=== PATIENT | male | born 1985 | race Caucasian/White ===

== ENCOUNTER 2017-05-05 03:10 | Observation (INO) | payer BC ==
[2017-05-05] MEDS ORDERED: Diltiazem IV* 5 MG/ML 5 ML VIAL (for loading dose/IV Push) (25 MG) IV SLOW PU ONE (03:45)
[2017-05-05 04:17] LABS: Hematocrit 45 % (42-52); Hemoglobin 15.1 g/dl (14.0-18.0); Mean Corpuscular HGB Conc 34 g/dl (31-36); Mean Corpuscular Hemoglobin 33 pg (27-31); Mean Corpuscular Volume 98 fL (80-94); Mean Platelet Volume 9 um3 (7.4-10.4); Red Blood Count 4.56 10^6/ul (4.0-5.4); Red Cell Distribution Width 13 % (10.5-15)
[2017-05-05 04:29] LABS: Albumin 4.8 g/dL (3.2-5.2); BUN/Creatinine Ratio 11.4 (8-20); Calcium 9.5 mg/dL (8.6-10.3); EGFR African American 129.9 (>60); Globulin 2.6 g/dL (2-4); Magnesium 2.1 mg/dL (1.9-2.7); Total Bilirubin 0.3 mg/dL (0.2-1.0); Total Protein 7.4 g/dL (6.4-8.9)
[2017-05-05 04:54] LABS: Potassium 4.1 mmol/L (3.5-5.0)
[2017-05-05] MEDS ORDERED: Ondansetron INJ* 2 MG/ML VIAL IV PRN (05:02)
[2017-05-05] MEDS ORDERED: Diltiazem DRIP* 100 MG/100 ML ADDV.BAG IVPB ONE (05:02)
[2017-05-05] MEDS ORDERED: Acetaminophen TAB* 325 MG PO PRN (05:02)
[2017-05-05 05:03] LABS: TSH (Thyroid Stimulating Horm) 1.04 mcIU/mL (0.34-5.60)
[2017-05-05] MEDS ORDERED: Heparin DRIP 25,000 UNITS(*) 25,000 UNITS/500 ML BAG IVPB SCH (05:30)
--- NOTE | 2017-05-05 05:30 | HP ---
H&P (Free Text) History and Physical: PCP: Iliana Sosa MD Date/Time of Evaluation: 05/05/2017 0500 CC: palpitations HPI: Mr Green is a 31YO male HX pAFIB associated with cocaine use. Tonight he was at a Birthday wine tasting when the opportunity to snort cocaine arose. He used around midnight and noticed the sudden onset of palpitations around 0100 prompting him to present. He denies chest pain, SOB, N/V, sweats, or other issues. Bowels and bladder have been normal. PMedHx pAFIB substance use Ambulatory Orders NK [No Home Medications Reported] 05/05/17 Allergies No Known Allergies Allergy (Verified 10/16/16 14:17) PSurgHx appendectomy SocHx: <1/2PPD cigarettes, occasional alcohol, occasional cocaine/marijuana use ; full code status FamHx: Mother: HTN; Father: passed of lung CA in his 60s ROS: as above, otherwise reviewed and all were negative Constitutional: NAD, normally developed, well-nourished white male vitals: Vital Signs Temp 36.9 C 05/05/17 03:41 Pulse 148 05/05/17 03:41 Resp 14 05/05/17 03:41 BP 123/75 05/05/17 03:41 Pulse Ox 98 05/05/17 03:41 Intake & Output 05/04/17 05/04/17 05/05/17 11:59 23:59 11:59 Weight 81.647 kg HEENM: atraumatic; sclera/conjunctiva: non-icteric/clear; hearing: clinically intact; oropharynx: clear, mucosa moist Neck: soft tissue: non-tender; thyroid: normal Pulmonary: clear to auscultation bilaterally, good aeration, no accessory muscle use CV: RR/RR, normal S1S2, no carotid bruit, no jugular venous distention, 2+ B DP/ PT, no edema Abdominal: soft, non-distended, non-tender, no rebound/guarding/rigidity, normoactive bowel sounds, no hepatosplenomegaly or masses, no costovertebral angle tenderness Musculoskeletal: general: grossly intact; gait: stable Integumental: normal appearance and texture of exposed skin Psychiatric orientation: AA&O to PPS affect: calm mood: cooperative eye contact: good content: reliable responses: timely insight: good to fair Testing: Lab Results 05/05/17 05/05/17 05/05/17 Range/Units 03:50 03:50 03:50 WBC 8.0 (3.5-10.8) 10^3/ul RBC 4.56 (4.0-5.4) 10^6/ul Hgb 15.1 (14.0-18.0) g/dl Hct 45 (42-52) % MCV 98 H (80-94) fL MCH 33 H (27-31) pg MCHC 34 (31-36) g/dl RDW 13 (10.5-15) % Plt Count 210 (150-450) 10^3/ul MPV 9 (7.4-10.4) um3 Neut % (Auto) 59.9 (38-83) % Lymph % (Auto) 30.4 (25-47) % [place] % (Auto) 7.9 (1-9) % Eos % (Auto) 0.7 (0-6) % Baso % (Auto) 1.1 (0-2) % Absolute Neuts (auto) 4.8 (1.5-7.7) 10^3/ul Absolute Lymphs (auto) 2.4 (1.0-4.8) 10^3/ul Absolute Monos (auto) 0.6 (0-0.8) 10^3/ul Absolute Eos (auto) 0.1 (0-0.6) 10^3/ul Absolute Basos (auto) 0.1 (0-0.2) 10^3/ul Absolute Nucleated RBC 0.01 10^3/ul Nucleated RBC % 0.1 INR (Anticoag Therapy) 0.84 L (0.89-1.11) Sodium 139 (133-145) mmol/L Potassium 4.1 (3.5-5.0) mmol/L Chloride 109 (101-111) mmol/L Carbon Dioxide 20 L (22-32) mmol/L Anion Gap 10 (2-11) mmol/L BUN 10 (6-24) mg/dL Creatinine 0.88 (0.67-1.17) mg/dL Est GFR ( Amer) 129.9 (>60) Est GFR (Non-Af Amer) 101.0 (>60) BUN/Creatinine Ratio 11.4 (8-20) Glucose 104 H (70-100) mg/dL Lactic Acid (0.5-2.0) mmol/L Calcium 9.5 (8.6-10.3) mg/dL Magnesium 2.1 (1.9-2.7) mg/dL Total Bilirubin 0.30 (0.2-1.0) mg/dL AST 23 (13-39) U/L ALT 23 (7-52) U/L Alkaline Phosphatase 77 (34-104) U/L Troponin I 0.00 (<0.04) ng/mL Total Protein 7.4 (6.4-8.9) g/dL Albumin 4.8 (3.2-5.2) g/dL Globulin 2.6 (2-4) g/dL Albumin/Globulin Ratio 1.8 (1-3) TSH 1.04 (0.34-5.60) mcIU/mL 05/05/17 Range/Units 03:50 WBC (3.5-10.8) 10^3/ul RBC (4.0-5.4) 10^6/ul Hgb (14.0-18.0) g/dl Hct (42-52) % MCV (80-94) fL MCH (27-31) pg MCHC (31-36) g/dl RDW (10.5-15) % Plt Count (150-450) 10^3/ul MPV (7.4-10.4) um3 Neut % (Auto) (38-83) % Lymph % (Auto) (25-47) % [place] % (Auto) (1-9) % Eos % (Auto) (0-6) % Baso % (Auto) (0-2) % Absolute Neuts (auto) (1.5-7.7) 10^3/ul Absolute Lymphs (auto) (1.0-4.8) 10^3/ul Absolute Monos (auto) (0-0.8) 10^3/ul Absolute Eos (auto) (0-0.6) 10^3/ul Absolute Basos (auto) (0-0.2) 10^3/ul Absolute Nucleated RBC 10^3/ul Nucleated RBC % INR (Anticoag Therapy) (0.89-1.11) Sodium (133-145) mmol/L Potassium (3.5-5.0) mmol/L Chloride (101-111) mmol/L Carbon Dioxide (22-32) mmol/L Anion Gap (2-11) mmol/L BUN (6-24) mg/dL Creatinine (0.67-1.17) mg/dL Est GFR ( Amer) (>60) Est GFR (Non-Af Amer) (>60) BUN/Creatinine Ratio (8-20) Glucose (70-100) mg/dL Lactic Acid 1.4 (0.5-2.0) mmol/L Calcium (8.6-10.3) mg/dL Magnesium (1.9-2.7) mg/dL Total Bilirubin (0.2-1.0) mg/dL AST (13-39) U/L ALT (7-52) U/L Alkaline Phosphatase (34-104) U/L Troponin I (<0.04) ng/mL Total Protein (6.4-8.9) g/dL Albumin (3.2-5.2) g/dL Globulin (2-4) g/dL Albumin/Globulin Ratio (1-3) TSH (0.34-5.60) mcIU/mL ECG, personally reviewed: AFIV rate 137, no ischemia Impression: 31M presenting with cocaine induced AFIB/RVR DIAGNOSIS & PLAN Primary AFIB/RVR, cocaine induced : diltiazem GTT for rate control : heparin GTT : cardiology consult in AM, if not spontaneously converted : supplemental oxygen : IVFs : supportive care 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
--- NOTE | 2017-05-05 05:51 | ED ---
Justus Taylor Benjamin, scribed for Mango Medina MD on 05/05/17 at 0353 . Palpitations / Dysrhythmia - HPI Summary HPI Summary: 31yo male c/o sudden onset irregular heartbeat. PMHx of A-fib. Pt has had a cardioversion in Oct 2016. 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 Hx of cocaine abuse. - History of Current Complaint Chief Complaint: EDDysrhythmPalp Time Seen by Provider: 05/05/17 03:44 Hx Obtained From: Patient Onset/Duration: Sudden Onset, Lasting Hours, Still Present Timing: Constant Severity Initially: Moderate Severity Currently: Moderate Character: Irregular Aggravating: Medication - cocaine Alleviating: Nothing Associated Signs & Symptoms: Negative - Allergy/Home Medications Allergies/Adverse Reactions: Allergies Allergy/AdvReac Type Severity Reaction Status Date / Time No Known Allergies Allergy Verified 10/16/16 14:17 PMH/Surg Hx/FS Hx/Imm Hx Cardiovascular History: Reports: Hx Atrial Fibrillation - Surgical History Surgery Procedure, Year, and Place: APPENDECTOMY Infectious Disease History: No Infectious Disease History: Denies: Traveled Outside the [place] in Last 30 Days - Family History Known Family History: Positive: Hypertension - mother, brother, Diabetes - Social History Occupation: Employed Full-time Lives: With Family Alcohol Use: Weekly Alcohol Amount: 2-4 days Hx Substance Use: Yes Substance Use Type: Reports: Cocaine, Marijuana Hx Tobacco Use: Yes Smoking Status (MU): Heavy Every Day Tobacco Smoker Type: Cigarettes Review of Systems Constitutional: Negative Eyes: Negative ENT: Negative Positive: Palpitations Respiratory: Negative Gastrointestinal: Negative Genitourinary: Negative Musculoskeletal: Negative Skin: Negative Neurological: Negative Psychological: Normal All Other Systems Reviewed And Are Negative: Yes Physical Exam Triage Information Reviewed: Yes Vital Signs On Initial Exam: Initial Vitals Temp Pulse Resp BP Pulse Ox 97.6 F 66 18 110/73 100 05/05/17 03:23 05/05/17 03:23 05/05/17 03:23 05/05/17 03:23 05/05/17 03:23 Vital Signs Reviewed: Yes Appearance: Positive: No Pain Distress, Thin Skin: Positive: Warm Eyes: Positive: LEAH ENT: Positive: Hearing grossly normal Neck: Positive: Supple Respiratory/Lung Sounds: Positive: Clear to Auscultation, Breath Sounds Present Cardiovascular: Positive: IRR, Tachycardia Abdomen Description: Positive: Nontender, Soft Bowel Sounds: Positive: Present Musculoskeletal: Positive: Strength/ROM Intact Neurological: Positive: Alert, Oriented to Person Place, Time Diagnostics - Vital Signs Vital Signs Temp Pulse Resp BP Pulse Ox 05/05/17 03:41 98.5 F 148 14 123/75 98 05/05/17 03:23 97.6 F 66 18 110/73 100 - Laboratory Lab Results: Lab Results 05/05/17 05/05/17 05/05/17 Range/Units 03:50 03:50 03:50 WBC 8.0 (3.5-10.8) 10^3/ul RBC 4.56 (4.0-5.4) 10^6/ul Hgb 15.1 (14.0-18.0) g/dl Hct 45 (42-52) % MCV 98 H (80-94) fL MCH 33 H (27-31) pg MCHC 34 (31-36) g/dl RDW 13 (10.5-15) % Plt Count 210 (150-450) 10^3/ul MPV 9 (7.4-10.4) um3 Neut % (Auto) 59.9 (38-83) % Lymph % (Auto) 30.4 (25-47) % [place] % (Auto) 7.9 (1-9) % Eos % (Auto) 0.7 (0-6) % Baso % (Auto) 1.1 (0-2) % Absolute Neuts (auto) 4.8 (1.5-7.7) 10^3/ul Absolute Lymphs (auto) 2.4 (1.0-4.8) 10^3/ul Absolute Monos (auto) 0.6 (0-0.8) 10^3/ul Absolute Eos (auto) 0.1 (0-0.6) 10^3/ul Absolute Basos (auto) 0.1 (0-0.2) 10^3/ul Absolute Nucleated RBC 0.01 10^3/ul Nucleated RBC % 0.1 INR (Anticoag Therapy) 0.84 L (0.89-1.11) Sodium 139 (133-145) mmol/L Potassium 4.1 (3.5-5.0) mmol/L Chloride 109 (101-111) mmol/L Carbon Dioxide 20 L (22-32) mmol/L Anion Gap 10 (2-11) mmol/L BUN 10 (6-24) mg/dL Creatinine 0.88 (0.67-1.17) mg/dL Est GFR ( Amer) 129.9 (>60) Est GFR (Non-Af Amer) 101.0 (>60) BUN/Creatinine Ratio 11.4 (8-20) Glucose 104 H (70-100) mg/dL Lactic Acid (0.5-2.0) mmol/L Calcium 9.5 (8.6-10.3) mg/dL Magnesium 2.1 (1.9-2.7) mg/dL Total Bilirubin 0.30 (0.2-1.0) mg/dL AST 23 (13-39) U/L ALT 23 (7-52) U/L Alkaline Phosphatase 77 (34-104) U/L Troponin I 0.00 (<0.04) ng/mL Total Protein 7.4 (6.4-8.9) g/dL Albumin 4.8 (3.2-5.2) g/dL Globulin 2.6 (2-4) g/dL Albumin/Globulin Ratio 1.8 (1-3) TSH 1.04 (0.34-5.60) mcIU/mL 05/05/17 Range/Units 03:50 WBC (3.5-10.8) 10^3/ul RBC (4.0-5.4) 10^6/ul Hgb (14.0-18.0) g/dl Hct (42-52) % MCV (80-94) fL MCH (27-31) pg MCHC (31-36) g/dl RDW (10.5-15) % Plt Count (150-450) 10^3/ul MPV (7.4-10.4) um3 Neut % (Auto) (38-83) % Lymph % (Auto) (25-47) % [place] % (Auto) (1-9) % Eos % (Auto) (0-6) % Baso % (Auto) (0-2) % Absolute Neuts (auto) (1.5-7.7) 10^3/ul Absolute Lymphs (auto) (1.0-4.8) 10^3/ul Absolute Monos (auto) (0-0.8) 10^3/ul Absolute Eos (auto) (0-0.6) 10^3/ul Absolute Basos (auto) (0-0.2) 10^3/ul Absolute Nucleated RBC 10^3/ul Nucleated RBC % INR (Anticoag Therapy) (0.89-1.11) Sodium (133-145) mmol/L Potassium (3.5-5.0) mmol/L Chloride (101-111) mmol/L Carbon Dioxide (22-32) mmol/L Anion Gap (2-11) mmol/L BUN (6-24) mg/dL Creatinine (0.67-1.17) mg/dL Est GFR ( Amer) (>60) Est GFR (Non-Af Amer) (>60) BUN/Creatinine Ratio (8-20) Glucose (70-100) mg/dL Lactic Acid 1.4 (0.5-2.0) mmol/L Calcium (8.6-10.3) mg/dL Magnesium (1.9-2.7) mg/dL Total Bilirubin (0.2-1.0) mg/dL AST (13-39) U/L ALT (7-52) U/L Alkaline Phosphatase (34-104) U/L Troponin I (<0.04) ng/mL Total Protein (6.4-8.9) g/dL Albumin (3.2-5.2) g/dL Globulin (2-4) g/dL Albumin/Globulin Ratio (1-3) TSH (0.34-5.60) mcIU/mL Result Diagrams: 05/05/17 03:50 05/05/17 03:50 Lab Statement: Any lab studies that have been ordered have been reviewed, and results considered in the medical decision making process. - EKG 0340 EKG Rhythm: Atrial Fibrillation Course/Dx - Diagnoses Provider Diagnoses: Cocaine abuse, Atrial fibrillation - Physician Notifications Discussed Care Of Patient With: Janes Hua Time Discussed With Above Provider: 04:10 Discharge - Discharge Plan Condition: Fair Disposition: ADMITTED TO [facility] documentation as recorded by the Justus hernandez Benjamin accurately reflects the service I personally performed and the decisions made by co, Mango Medina MD.
[2017-05-05] MEDS ORDERED: Omeprazole CAP* 20 MG PO SCH (06:00)
[2017-05-05] MEDS ORDERED: Heparin VIAL(*) 5000 UNITS/ML VIAL (FIVE THOUSAND) IV PRN (06:12)
[2017-05-05 06:27] VITALS: BP 156/70
[2017-05-05] MEDS: NS 0.9% 1000 ML* 1,000 ML IV SCH ×2 (07:12→09:20)
--- NOTE | 2017-05-05 11:57 | DCNOTE ---
Patient converted to NSR earlier this morning, has remained for ~4 hrs. Dilt and heparin gtts stopped. No further palpitations. Symptoms began around 1.5 hrs after cocaine use. On exam, RRR, s1 and s2 present, no m/g/r, abd soft, NTND, BS+, lungs CTA B/L, no w/r/r Will plan to discharge today. Encouraged to avoid cocaine use at all times and limit caffeine as he has been doing. Should f/u with Dr. Garcia.
--- NOTE | 2017-05-06 10:12 | DS ---
CC: Dr. Sosa; Dr. Garcia, Cardiology DISCHARGE SUMMARY: DATE OF ADMISSION: 05/05/17 DATE OF DISCHARGE: 05/05/17 PRIMARY CARE PHYSICIAN: Dr. Sosa. PRINCIPAL DISCHARGE DIAGNOSIS: Atrial fibrillation, likely induced by cocaine. DISCHARGE MEDICATION REGIMEN: None. HISTORY OF PRESENT ILLNESS AND HOSPITAL SUMMARY: Please see the full history and physical by Dr. Fr mary Hua for full details. Briefly, Mr. Green is a 31-year- old man with previous history of AFib likely also related to drug use, who presented to the hospital about an hour and half after sno rting cocaine when he developed palpitations. This felt very similar to his previous episode. EKG confirmed atrial fibrillation. Patient was started on heparin drip and a Cardizem drip. He convert ed back to normal sinus rhythm within a few hours. Troponin was checked and was negative. The patient follows with Dr. Garcia as an outpatient. He states he was on dronedarone and Xarelto a fter his previous episode; however, this was discontinued by Dr. Garcia as an outpatient. I encoura ged him to follow up with Dr. Garcia to see if he feels that the patient needs to be in any long-ter m medications, but I think most importantly the patient needs to completely avoid cocaine as this se ems to be the direct cause of his arrhythmia during this hospitalization. He was also instructed to avoid caffeine, which he states he has been doing a good job of. Patient was asymptomatic. He was monitored in the hospital for an additional 4 to 5 hours after converting and remained in normal sin us rhythm. He will be discharged home without any medications, but with PCP and cardiology followup . TIME SPENT: Total time spent on this discharge 30 minutes. This is a summary of the hospitalization. Please see the full medical record for full details. [id number]/[facility] #: [id number]
== END 2017-05-05 12:26 | disposition home or self-care (01) ==
LOC: ED 03:10 → MEDTELE 04:59
PROVIDERS: ADMIT Hospitalist; ATTEND Hospitalist
DX: I48.91 Unspecified atrial fibrillation (principal); F14.10 Cocaine abuse, uncomplicated; F17.210 Nicotine dependence, cigarettes, uncomplicated; R94.31 Abnormal electrocardiogram [ECG] [EKG]
CPT/HCPCS: 36415; 80053; 83605; 83735; 84443; 84484; 85025; 85610; 85730; 93005; 94760; 96361; 96365; 96375; 99285; A9270-GY; G0378; J1644

== ENCOUNTER 2018-08-29 15:28 | Observation (INO) | payer BC ==
--- NOTE | 2018-08-29 16:11 | ED ---
Palpitations / Dysrhythmia - HPI Summary HPI Summary: The pt is a 32 y/o M presenting to [facility] c/o acute of chronic arrhythmia worsened 15:00 today while at work. Today,he had vitamin water containing caffeine. In the past, palpitations last 10-20 minutes, but have persisted today. He notes bilateral shoulder pain and pressure, and vascular pressure on the head. 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 - History of Current Complaint Chief Complaint: EDDysrhythmPalp Time Seen by Provider: 08/29/18 15:51 Hx Obtained From: Patient Onset/Duration: Sudden Onset - 15:00 hrs, Still Present, Other - Acute on chronic - Allergy/Home Medications Allergies/Adverse Reactions: Allergies Allergy/AdvReac Type Severity Reaction Status Date / Time No Known Allergies Allergy Verified 08/29/18 15:46 PMH/Surg Hx/FS Hx/Imm Hx Previously Healthy: No Cardiovascular History: Reports: Hx Atrial Fibrillation Sensory History: Denies: Hx Contacts or Glasses, Hx Hearing Aid Opthamlomology History: Denies: Hx Contacts or Glasses - Cancer History Cancer Type, Location and Year: None reported - Surgical History Surgery Procedure, Year, and Place: Appendectomy - Immunization History Immunizations Up to Date: Yes Infectious Disease History: No Infectious Disease History: Denies: Traveled Outside the [place] in Last 30 Days - Family History Known Family History: Positive: Hypertension - mother, brother, Diabetes - Social History Occupation: Employed Full-time Lives: Alone Alcohol Use: Weekly Alcohol Amount: 2-4 days Hx Substance Use: Yes Substance Use Type: Reports: Cocaine, Marijuana Substance Use Comment - Amount & Last Used: last used 05/04/2017 Hx Tobacco Use: Yes Smoking Status (MU): Heavy Every Day Tobacco Smoker Type: Cigarettes Review of Systems Positive: Palpitations, Other - Positive: vascular pressure on the head Positive: Other - Positive: bilateral shoulder pain and pressure All Other Systems Reviewed And Are Negative: Yes Physical Exam - Summary Physical Exam Summary: Appearance: The patient is well-nourished in no acute distress and in no acute pain. Skin: The skin is warm and dry and skin color reflects adequate perfusion. HEENT: The head is normocephalic and atraumatic. The pupils are equal and reactive. The conjunctivae are clear and without drainage. Nares are patent and without drainage. Mouth reveals moist mucous membranes and the throat is without erythema and exudate. The external ears are intact. The ear canals are patent and without drainage. The tympanic membranes are intact. Neck: The neck is supple with full range of motion and non-tender. There are no carotid bruits. There is no neck vein distension. Respiratory: Chest is non-tender. Lungs are clear to auscultation and breath sounds are symmetrical and equal. Cardiovascular: Heart has irregularly irregular rate and rhythm. Tachycardia noted. There is no murmur or rub auscultated. There is no peripheral edema and pulses are symmetrical and equal. Abdomen: The abdomen is soft and non-tender. There are normal bowel sounds heard in all four quadrants and there is no organomegaly palpated. Musculoskeletal: There is no back tenderness noted. Extremities are non-tender with full range of motion. There is good capillary refill. There is no peripheral edema or calf tenderness elicited. Neurological: Patient is alert and oriented to person, place and time. The patient has symmetrical motor strength in all four extremities. Cranial nerves are grossly intact. Deep tendon reflexes are symmetrical and equal in all four extremities. Psychiatric: The patient has an appropriate affect and does not exhibit any anxiety or depression. Triage Information Reviewed: Yes Vital Signs On Initial Exam: Initial Vitals Temp Pulse Resp BP Pulse Ox 97.7 F 109 16 107/66 99 08/29/18 15:30 08/29/18 15:30 08/29/18 15:30 08/29/18 15:30 08/29/18 15:30 Vital Signs Reviewed: Yes Diagnostics - Vital Signs Vital Signs Temp Pulse Resp BP Pulse Ox 08/29/18 16:00 98 24 99 08/29/18 15:53 108 15 131/96 100 08/29/18 15:51 106 98 08/29/18 15:30 97.7 F 109 16 107/66 99 - Laboratory Result Diagrams: 08/29/18 16:45 08/29/18 16:45 Lab Statement: Any lab studies that have been ordered have been reviewed, and results considered in the medical decision making process. - Radiology CXR Radiology Interpretation Completed By: Radiologist - IMPRESSION: Patchy densities overlying the bilateral lungs are nonspecific findings that could be seen in the setting of pulmonary edema, multifocal pneumonia and/or pneumonitis. The ED physician reviewed this radiology report. - EKG 15:18 Cardiac Rate: NL - 63 bpm EKG Rhythm: Atrial Flutter - Sinus versus atrial flutter with a 2-1 block 16:44 Cardiac Rate: Tachycardia - 136 bpm EKG Rhythm: Atrial Flutter - Sinus versus atrial flutter with a 2-1 block Course/Dx - Course Course Of Treatment: Mr. Green presented to the emergency department complaining that he had been in atrial fibrillation for about an hour to an hour and a half. He has been admitted many times and it often resolves on its own. He has also need to be cardioverted in the past. At one point he was scheduled to get an ablation but he lost his insurance and so never had it. He gets a little tightness in the back of his neck and shoulders when he has atrial fibrillation but no chest pain or shortness of breath. He presented tachycardic in the 120s and EKG showed either a normal sinus tachycardia or atrial flutter with a 2 to one block. Labs were obtained, he was kept on the monitor and he was given a dose of IV Cardizem which revealed that it was indeed an underlying atrial flutter with a [address] Dinh was contacted for possible cardioversion and recommended admission to the hospitalist service. Dr. Miramontes was contacted and will admit the patient. He was started on a Cardizem drip at that point. - Diagnoses Provider Diagnoses: Atrial flutter - Physician Notifications Discussed Care Of Patient With: Ronaldo Dover Time Discussed With Above Provider: 17:54 Instructed by Provider To: Admit As Inpatient - 17:57- Dr. Miramontes, the hospitalist agreed to admit the pt - Critical Care Time Critical Care Time: 30-74 min Discharge - Sign-Out/Discharge Documenting (check all that apply): Patient Departure - Admit - Discharge Plan Condition: Stable Disposition: ADMITTED TO [facility] Referrals: Juan Pablo Sosa MD [Primary Care Provider] - 2 Days - Billing Disposition and Condition Condition: STABLE Disposition: Admitted to [facility] - Attestation Statements Document Initiated by Scribe: Yes Documenting Scribe: Francine Taylor Provider For Whom Scribe is Documenting (Include Credential): Dr. Matt Quiñones MD Scribe Attestation: Francine Taylor , scribed for Dr. Matt Quiñones MD on 08/29/18 at 1841. Scribe Documentation Reviewed: Yes Provider Attestation: The documentation as recorded by the scribe, Francine Taylor accurately reflects the service I personally performed and the decisions made by me, Dr. Matt Quiñones MD
[2018-08-29] MEDS ORDERED: Diltiazem IV* 5 MG/ML 5 ML VIAL (for loading dose/IV Push) (25 MG) IV SLOW PU ONE (16:42)
[2018-08-29 16:55] LABS: ABS Basophils 0 10^3/ul (0-0.2); ABS Eosinophils 0.1 10^3/ul (0-0.6); ABS Lymphocytes 2.1 10^3/ul (1.0-4.8); ABS Monocytes 0.7 10^3/ul (0-0.8); ABS Neutrophils 6.2 10^3/ul (1.5-7.7); ABS Nucleated RBC 0 10^3/ul; Eosinophil % 0.5 % (0-6); Hematocrit 45 % (42-52); Hemoglobin 15.3 g/dl (14.0-18.0); Lymphocyte % 22.7 % (25-47); Mean Corpuscular HGB Conc 34 g/dl (31-36); Mean Corpuscular Hemoglobin 34 pg (27-31); Mean Corpuscular Volume 98 fL (80-94); Mean Platelet Volume 7.9 um3 (7.4-10.4); Nucleated Red Blood Cells % 0; Platelet Count 195 10^3/ul (150-450); Red Blood Count 4.58 10^6/ul (4.00-5.40); Red Cell Distribution Width 13 % (10.5-15); White Blood Count 9.1 10^3/ul (3.5-10.8)
[2018-08-29 17:03] LABS: INR 0.89 (0.77-1.02)
[2018-08-29 17:17] LABS: EGFR Non-African American 108.9 (>60)
[2018-08-29] MEDS ORDERED: Diltiazem DRIP* 100 MG/100 ML ADDV.BAG IVPB ONE (17:55)
[2018-08-29] MEDS ORDERED: Acetaminophen TAB* 325 MG PO PRN (18:06)
[2018-08-29] MEDS ORDERED: Potassium Chlor TAB* 20 MEQ TAB.ER PO ONE (18:12)
[2018-08-29] MEDS ORDERED: NS 0.9% 1000 ML* 1,000 ML IV SCH (18:15)
--- NOTE | 2018-08-29 21:45 | PN ---
Progress Note - Progress Note Date of Service: 08/29/18 Note: Patient arrived to floor, converted to NSR with rate of 70. Will check EKG. Stop diltiazem drip and start PO.
[2018-08-29] MEDS: Enoxaparin(*) 80 MG/0.8 ML SYR SUBCUT SCH (23:15)
--- NOTE | 2018-08-30 03:10 | HP ---
CC: Dr. Gracia; Dr. Dover * HISTORY AND PHYSICAL: DATE OF ADMISSION: 08/29/18 PRIMARY CARE PROVIDER: None. CHIEF COMPLAINT: Palpitations, chest pain, and shortness of breath. HISTORY OF PRESENT ILLNESS: Tre Green is a 32-year-old male with history of paroxysmal atrial fibrillation/flutter, who presented to the hospital complaining of symptoms of atrial flutter that occurred at 2 p.m. today. 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 Usually, it happens when he reaches to the right. He had an episode similar to that a couple of weeks ago, which resolved spontaneously after about 12 hours. He stated that usually the symptoms are the same which is chest pain, feeling like "something hit him in the head," shortness of breath , and palpitations. The patient's symptoms have by now resolved due to his heart rate being controlled on Cardizem drip. He is still in atrial flutter and he is going to be placed on overnight observation with the diagnosis of paroxysmal atrial fibrillation. PAST MEDICAL HISTORY: As mentioned above. PAST SURGICAL HISTORY: Appendectomy. HOME MEDICATIONS: None. FAMILY HISTORY: Father of lung cancer in his 60s. Mother with history of hypertension. SOCIAL HISTORY: The patient smokes less than half a pack of cigarettes a day, started smoking when he was 18. He drinks occasional alcohol, none recently. He used to use cocaine, but he has not for a year. He admits to occasional marijuana use. His surrogate decision making person is his mother who lives in [place]. REVIEW OF SYSTEMS: Please see history of present illness. Apart from the above mentioned, all the other 12 systems were reviewed with him and were negative. PHYSICAL EXAMINATION GENERAL: The patient is a very pleasant 32-year-old male, who is in no acute distress. Alert, awake, and oriented x3. VITAL SIGNS: Blood pressure of 117/75, heart rate of 111 and irregularly irregular, respiratory rate 21, oxygen saturation 96% on room air, temperature of 97.7. HEENT: Head: Atraumatic, normocephalic. Eyes: Pupils are equal, reactive to light and accommodation. Oropharynx clear. Mucosa moist. NECK: Supple. No JVD. No bruits bilaterally. RESPIRATORY: Clear to auscultation bilaterally. CARDIOVASCULAR: Irregularly irregular rhythm. No murmur. ABDOMEN: Soft, nontender. Bowel sounds are present in all 4 quadrants. EXTREMITIES: There is no edema. Pulses are +2 bilaterally. No clubbing, cyanosis. NEUROLOGIC: Speech clear. Cranial nerves II through XII are grossly intact. Motor strength is 5/5 bilaterally. SKIN: On evaluation of the skin, no ecchymotic areas or rashes noted. DIAGNOSTIC STUDIES/LAB DATA: White blood cell count of 9.1, hemoglobin 15.3, hematocrit 45, and platelets 195. Sodium 137, potassium of 3.9, chloride 106, carbon dioxide 23, BUN 14, creatinine 0.82. Liver function tests were unremarkable. Troponin of 0.05. Magnesium was 1.9. Urine drug screen is pending at the time of dictation. EKG shows sinus tachycardia with heart rate of 136 beats per minute with elevation of J point. It is likely that the patient was at this point in Aflutter. ASSESSMENT AND PLAN: The patient is currently in atrial flutter with rapid ventricular response. The patient is on Cardizem drip, which is going to be continued during his hospital stay. I will optimize his potassium level and give him a pill of potassium tonight. He is going to be placed n.p.o. in the morning for possibility of cardioversion if he continues to be in flutter. Dr. Dover was notified by the ED physician and we are going to consult him in that matter. In regards to the DVT prophylaxis, the patient is going to be placed on full dose of Lovenox while in atrial flutter. The patient's code status is full. His surrogate is his mother. TIME SPENT: Approximately 65 minutes was spent on admission of this patient, more than half of that time was spent [id number] with the patient during the interview and physical exam. [id number]/[facility] #: [id number] RAGHAV
[2018-08-30 07:12] LABS: EGFR Non-African American 99.1 (>60)
[2018-08-30] MEDS: Enoxaparin(*) 80 MG/0.8 ML SYR SUBCUT SCH (09:15)
--- NOTE | 2018-08-30 09:43 | CONSULT ---
<LashawnjuanAriana - Last Filed: 08/30/18 10:02> Subjective Date of Service: 08/30/18 - symptomatic AFlutter Interval History: This is a pleasant 32 year old male patient who formally followed Dr. 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 He was last seen a year ago in our practice and was offered Bblocker therapy, however the patient adds he declined. Apparently since PAF/Flutter was diagnosed in 10/2016 where he underwent successful HETAL/CV and was placed on Multaq and Xarelto for one month. he has been developing symptoms of Afib/flutter 2-3 times a year and adds that symptoms have been progressing in regards to frequency. 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 He states he was not able to self convert with valsalva maneuver which sometimes he is able to thus he opted for evaluation in the ER. While being evaluated in the ER he was in Aflutter with RVR rates 130's he was placed on Cardizem IV and converted around 2100 last night. no re occurrence of symptoms. Troponin peaked at .25 at 2144 yesterday ( 08/29/2018). He denies using cocaine since 04/2017 which historically provoked arrhythmia, he does admit to daily marijuana usage. No chest pain, syncope, osborn or edema. Family History: Unchanged from Admission - denies family history of sudden cardiac , mother suffers from HTN, brother suffer from HTN Social History: Unchanged from Admission - smokes < 1/2 PPD, uses marijuana daily, historically used cocaine but has not used since 04/2017, drinks ETOH socially. 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 Review of Systems - Measurements Intake and Output: Intake and Output Last 24 Hours 08/28/18 08/29/18 08/30/18 08/31/18 06:59 06:59 06:59 06:59 Intake Total 30 Balance 30 Weight 177 lb 3.2 oz Intake: IV Fluids 30 Oral 0 Other: # Bowel Movements 0 - Review of Systems Thyroid: Positive: Palpitations Pulmonary: Positive: Shortness of Breath Cardiology: Positive: Shortness of Breath, Palpitations - neck pain radiating to head Review of Systems Statement: All other review of systems negative, unless stated above. Objective Vital Signs: Temp Pulse Resp BP Pulse Ox 97.8 F 54 16 112/67 100 08/30/18 07:20 08/30/18 07:20 08/30/18 07:51 08/30/18 07:20 08/30/18 07:20 Oxygen Devices in Use Now: Nasal Cannula Appearance: A+O x3, cooperative with exam, appears well nourished, NAD Laboratory Results: 08/29/18 16:45 08/30/18 06:22 INR (Anticoag Therapy) 0.89 (0.77-1.02) 08/29/18 16:45 Total Bilirubin 0.50 mg/dL (0.2-1.0) 08/29/18 16:45 AST 26 U/L (13-39) 08/29/18 16:45 ALT 37 U/L (7-52) 08/29/18 16:45 Alkaline Phosphatase 73 U/L (34-104) 08/29/18 16:45 Total Protein 6.6 g/dL (6.4-8.9) 08/29/18 16:45 Albumin 4.6 g/dL (3.2-5.2) 08/29/18 16:45 Globulin 2.0 g/dL (2-4) 08/29/18 16:45 Albumin/Globulin Ratio 2.3 (1-3) 08/29/18 16:45 TSH 1.73 mcIU/mL (0.34-5.60) 08/29/18 16:45 08/29/18 08/29/18 08/29/18 16:45 18:25 21:44 Troponin I 0.05 H* 0.14 H* 0.25 H* 08/30/18 06:22 Troponin I 0.18 H* Diagnostic Imaging: echo pending Telemetry reviewed; NSR rates 45-55 EKG Data: initial EKG from 08/29/2018 AFL ? 2:1 conduction rate 136 Prior ekg from 2017 was concerning for WPW given possible subtle delta wave which was confirmed with todays ekg. Assessment/Plan This is a pleasant 32 year old male patient who historically followed Dr. Garcia of our practice due to PAF/Flutter initially diagnosed 10/2016 At that time he underwent successful HETAL/CV and was placed on Multaq and Xarelto for one month. He reports having episodes of Afib/Flutter 2-3 times a year since diagnosis however episodes have been increasing in regards to frequency. He had 8 hour episode of symptomatic Aflutter yesterday ( palpitations, sensation of heart racing, sob, neck pain radiating into temporal region of head). He was placed on IV cardizem and converted to NSR at 2144 08/29/2018. Troponin peaked at .25 08/29/2018. He has been in NSR since and currently reports no symptoms. After review of prior ekgs specifically with 2017 ekg there is confirmed clinical suspicion of delta wave with short OK interval. At this current time we will order echo to evaluate wall motion and LVEF given h/o tachycardia induced cardiomyopathy, check treadmill stress test given troponin elevation and desire to initiate fleconide therapy. Given concern for possible WPW will avoid AV schuyler blocking agents. continue to monitor on telemetry will follow after diagnostic studies. 1. Symptomatic PAF/Flutter; Currently in NSR Chads Vasc 1 thus no OAC. Will check echo, treadmill stress test and likely initiate Fleconide. Will follows 2. 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 h/o Tachycardia induced cardiomyopathy; LVEF 40-45%, will repeat echo. he is euvolemic on exam today 4. h/o Bicuspid AV; no TTA aneurysm in 2016 re eval with echo today. 5. Disposition pending course will follow. Attending: Alexandra Up <Alexandra Up - Last Filed: 08/30/18 16:04> Medications Active Medications: Acetaminophen (Tylenol Tab*) 650 mg PO Q4H PRN PRN Reason: FEVER/PAIN Enoxaparin Sodium (Lovenox(*)) 80 mg SUBCUT Q12H [facility] Last Admin: 08/30/18 09:15 Dose: 80 mg Home Medications: NK [No Home Medications Reported] 05/05/17 [History Confirmed 08/29/18] Review of Systems - Measurements Intake and Output: Intake and Output Last 24 Hours 08/28/18 08/29/18 08/30/18 08/31/18 04:59 04:59 04:59 04:59 Intake Total 30 1234 Balance 30 1234 Weight 177 lb 3.2 oz Intake: IV Fluids 30 874 Oral 0 360 Other: # Bowel Movements 0 # Voids 3 - Review of Systems Review of Systems Statement: All other review of systems negative, unless stated above. Objective Vital Signs: Temp Pulse Resp BP Pulse Ox 97.9 F 59 16 127/78 98 08/30/18 10:45 08/30/18 10:45 08/30/18 10:45 08/30/18 10:45 08/30/18 10:45 Laboratory Results: 08/29/18 16:45 08/30/18 06:22 INR (Anticoag Therapy) 0.89 (0.77-1.02) 08/29/18 16:45 Total Bilirubin 0.50 mg/dL (0.2-1.0) 08/29/18 16:45 AST 26 U/L (13-39) 08/29/18 16:45 ALT 37 U/L (7-52) 08/29/18 16:45 Alkaline Phosphatase 73 U/L (34-104) 08/29/18 16:45 Total Protein 6.6 g/dL (6.4-8.9) 08/29/18 16:45 Albumin 4.6 g/dL (3.2-5.2) 08/29/18 16:45 Globulin 2.0 g/dL (2-4) 08/29/18 16:45 Albumin/Globulin Ratio 2.3 (1-3) 08/29/18 16:45 TSH 1.73 mcIU/mL (0.34-5.60) 08/29/18 16:45 08/29/18 08/29/18 08/29/18 16:45 18:25 21:44 Troponin I 0.05 H* 0.14 H* 0.25 H* 08/30/18 06:22 Troponin I 0.18 H* Assessment/Plan Echo today: LVH, EF low normal at 50%, normal diastolic filling. Bicuspid aortic valve with normal function. mild MR and TR. No evidence of thoracic aneurism or coarct. TM stress: Negative for ischemia, excellent exercise capacity, hypertensive. As above, typical flutter, RVR and symptomatic. 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 Echo with low normal EF is s/p flutter w/ RVR. In 2017 pt had similar EF, normalized further out in NSR. Short term recommendation of flecainide (50 BID to start) which I feel is safe based on echo and TM stress test and terminal operator recommendation of EPS and ablation. The specifics of the procedure were discussed iwth the patient and his mother. LVH and HTN: The patient is at risk for coarctation and thoracic aneurism with bicuspid valve, non noted now. I recommend treating BP (although up and down here, there could be an anxiety component) with goal of SBP 120-130, dibp < 90. BiC AV: Leaflets thin and pliable now, will follow clinically and with echos.
[2018-08-30] MEDS ORDERED: Perflutren Lipid Microsphere* 3 ML VIAL ONE (12:48)
--- NOTE | 2018-08-30 15:47 | ECHO ---
Patient: MING MORGAN [facility] Rec#: [id number] : 1985 Date: 08/30/2018 Age: 32y Height: 178 cm / 70.1 in Weight: 79.4 kg / 175.0 lbs Sex: M BSA: 2 Room#: [facility] Admit Date#: 08/29/2018 Type: Inpatient Referring: Jasmina Miramontes MD Reading: Alexandra Up MD Paper Finisher: Selam Castle RN RDCS CC: Gilberto Garcia MD CC: Juan Pablo Sosa Transthoracic Echocardiogram Indication: Abnormal EKG, A. fib/A. flutter BP: 103/66 HR: 52 Rhythm: Bradycardia Findings History: Bicuspid aortic valve, paroxysmal A.fib/A.flutter, smoker, ETOH use, cocaine use, marijuana use Technical Comments: The study quality is fair. The study is technically limited due to the patient's smoking history. Left Ventricle: The left ventricular chamber size is normal. Mild concentric left ventricular hypertrophy is observed. Mild global hypokinesis of the left ventricle is observed.EF estimated at 50%. Normal left ventricular diastolic filling is observed. Left Atrium: The left atrial chamber size is normal. Right Ventricle: The right ventricular cavity size is normal. The right ventricular global systolic function is low normal. Right Atrium: The right atrium is mildly dilated. Aortic Valve: The aortic valve appears bicuspid. The aortic valve leaflets are mildly thickened. Systolic excursion of the aortic valve is normal. There is no evidence of aortic regurgitation. The mean gradient of the aortic valve is 4 mmHg. The peak instantaneous gradient of the aortic valve is 8 mmHg. The aortic valve area, by peak velocities, is calculated at 2.3 cm2. The aortic valve area, by VTI's, is calculated at 2.2 cm2. Mitral Valve: The mitral valve leaflets are mildly thickened.anterior leaflet. There is mild mitral regurgitation. There is no evidence of mitral stenosis. Tricuspid Valve: The tricuspid valve leaflets are normal. There is mild tricuspid regurgitation. No pulmonary hypertension is noted. There is no tricuspid stenosis. Pulmonic Valve: The pulmonic valve appears normal. There is a trace pulmonic regurgitation. There is no pulmonic stenosis. Pericardium: There is no significant pericardial effusion. Aorta: There is no dilatation of the ascending aorta. There is no dilatation of the aortic arch. There is mild dilatation of the aortic root. Pulmonary Artery: The main pulmonary artery is not well visualized. Venous: The inferior vena cava appears normal in size. There is an approximate 50% respiratory change in the inferior vena cava dimension. Contrast: Definity was used to optimize study. A total of 5 ml of diluted Definity was given IV. Conclusions Mild concentric left ventricular hypertrophy is observed. Mild global hypokinesis of the left ventricle is observed.EF estimated at 50%. The right ventricular global systolic function is low normal. The aortic valve is bicuspid. Systolic excursion of the aortic valve is normal. The mitral valve leaflets are mildly thickened.anterior leaflet. There is mild mitral regurgitation. There is mild tricuspid regurgitation. There is no dilatation of the ascending aorta and normal velocities in the descending aorta. Compared with prior echo of 04/18/17, LVH is new, EF previously 55-60% (currently s/p atrial flutter episode), MR has improved from mild/moderate, TR is stable. Measurements Name Value Normal Range RVIDd (AP) 2D 3 cm (0.9 - 2.6) RVDdMajor (2D) 3.7 cm (2.2 - 4.4) RAd ISD 4CH 5.7 cm (3.4 - 4.9) RA (A4C)W 4.1 cm (2.9 - 4.6) IVSd (2D) 1.3 cm (0.6 - 1) LVPWd (2D) 1.2 cm (0.6 - 1) LVIDd (2D) 4.7 cm (3.6 - 5.4) LVIDs (2D) 3.8 cm - LV FS (2D) 19 % (25 - 45) Aortic Annulus 2.3 cm (1.4 - 2.6) Ao root diameter (2D) 3.9 cm (2.1 - 3.5) Ascending Ao 3.1 cm (2.1 - 3.4) Aortic arch 2.6 cm (1.8 - 3.4) LA dimension (AP) 2D 2.8 cm (2.3 - 3.8) LAd ISD 4CH 4.7 cm (2.9 - 5.3) LA ISD 4CH W 3.9 cm (2.5 - 4.5) Name Value Normal Range LA ESV BP (A/L) index 29.2 ml/m2 - Name Value Normal Range MV E-wave Vmax 0.79 m/sec - MV deceleration time 278 msec - MV A-wave Vmax 0.48 m/sec - MV E:A ratio 1.7 ratio - LV septal e' Vmax 0.13 m/sec - LV lateral e' Vmax 0.14 m/sec - LV E:e' septal ratio 6.1 ratio - LV E:e' lateral ratio 5.6 ratio - Name Value Normal Range AV Vmax 1.4 m/sec - AV VTI 29.9 cm - AV peak gradient 8 mmHg - AV mean gradient 4 mmHg - LVOT diameter 2.3 cm - LVOT Vmax 0.77 m/sec - LVOT VTI 15.7 cm - LVOT peak gradient 2 mmHg - LVOT mean gradient 1 mmHg - DOI (VTI) 0.53 ratio - DOI (Vmax) 0.55 ratio - RITESH (continuity Vmax) 2.3 cm2 - RITESH (continuity VTI) 2.2 cm2 - DONITA Vmax 0.83 m/sec - Name Value Normal Range TR Vmax 2.1 m/sec - TR peak gradient 18 mmHg - RAP 7 mmHg - RVSP 25 mmHg - IVC diameter 2 cm - Name Value Normal Range PV Vmax 0.72 m/sec -
[2018-08-30 16:58] VITALS: BP 105/86
[2018-08-30] MEDS ORDERED: Diltiazem TAB* 30 MG PO SCH (22:00)
--- NOTE | 2018-08-31 09:26 | DS ---
CC: Dr. Sosa; Dr. Up * DISCHARGE SUMMARY: DATE OF ADMISSION: 08/29/18 DATE OF DISCHARGE: 08/30/18 PRIMARY CARE PROVIDER: Dr. Sosa. DISCHARGE DIAGNOSES: 1. Typical atrial flutter with rapid ventricular response, status post conversion to sinus rhythm while on Cardizem drip. 2. Bicuspid aortic valve. SECONDARY DIAGNOSES: 1. Elevated troponin likely due to demand ischemia. 2. History of paroxysmal atrial flutter in the past. MEDICATION AT DISCHARGE: Flecainide 50 mg b.i.d. LABORATORY DATA AND STUDIES PERFORMED DURING THE HOSPITAL STAY: On 08/30/18, sodium of 137, potassium 4.6, chloride of 109, carbon dioxide 25, BUN 13, creatinine 0.9. Troponin peaked at 0.25. Patient's TSH was 1.73 at admission. Urine drug screen was presumptive, positive for cannabinoids, otherwise negative. Transesophageal echocardiogram obtained on 08/29/18 showed EF of 50% with mild global hypokinesis of the left ventricle observed and mild concentric LVH with aortic valve bicuspid, systolic excursion of the aortic valve normal. Mitral valve leaflets are mildly thickened with the anterior leaflet. There is mild mitral regurgitation. In comparing with an echo from April of 2016, the LVH is new. The EF is reported 55-60. Currently, status post atrial flutter, episodes of MR has improved from moderate to mild. Tricuspid regurgitation is stable. The patient's cardiac stress test with a treadmill stress test, which showed subtle delta waves, but no evidence of inducible ischemia and otherwise negative treadmill cardiac stress test. CONSULTATIONS DURING THE HOSPITAL STAY: Included Dr. Up from Cardiology. HOSPITALIZATION COURSE: Tre Liang is a 32-year-old male with history of paroxysmal atrial flutter, who presented in atrial flutter yesterday. The patient was symptomatic of chest pain and shortness of breath that started resolving when his rate was controlled on Cardizem drip. On Cardizem drip, he converted to sinus rhythm/bradycardia within less than 12 hours of onset of his atrial flutter. His troponin was mildly increased. The patient was seen in consultation by Dr. Up. It was noted that occasionally on his EKG the patient was noted to have possible WPW pattern. Cardiac stress test with a treadmill stress test was performed by Dr. Up showed no evidence of ischemia. The patient also had transesophageal cardiogram performed, which confirmed history of bicuspid aortic valve. At this point, Dr. Up recommended for the patient to be started on flecainide 50 mg twice a day and to follow up with Dr. Up's office in approximately 1 to 2 weeks. The patient also planning at some point to have a referral to hydroelectric component machinist for possibility of ablation of the flutter. PHYSICAL EXAM AT DISCHARGE: Unchanged from admission. Please note that this is a short summary of patient's hospitalization. Please refer to further medical records for details. TIME SPENT: Approximately 35 minutes was spent on patient's discharge. [id number]/[facility] #: [id number] MTDD
== END 2018-08-30 17:45 | disposition home or self-care (01) ==
LOC: ED 15:28 → MEDTELE 18:05
PROVIDERS: ADMIT Internal Medicine; ATTEND Internal Medicine
DX: I48.3 Typical atrial flutter (principal); Q23.1 Congenital insufficiency of aortic valve; R79.89 Other specified abnormal findings of blood chemistry; R06.02 Shortness of breath; R00.2 Palpitations
CPT/HCPCS: 36415; 80048; 80053; 80307; 83605; 83735; 84443; 84484; 85025; 85610; 93005; 93017; 93306; 96365; 96375; 99284; A9270-GY; C8929; G0378; J1650

== ENCOUNTER 2018-09-19 21:12 | Emergency (ER) | payer BC ==
[2018-09-19] MEDS ORDERED: Digoxin IV* 0.5 MG/2 ML AMP (0.25 MG/ML) IV SLOW PU ONE (21:27)
[2018-09-19] MEDS ORDERED: NS 0.9% 1000 ML* 1,000 ML IV ONE (21:27)
[2018-09-19] MEDS ORDERED: Diltiazem IV* 5 MG/ML 5 ML VIAL (for loading dose/IV Push) (25 MG) IV SLOW PU ONE (21:27)
[2018-09-19 21:47] LABS: ABS Basophils 0 10^3/ul (0-0.2); ABS Eosinophils 0.1 10^3/ul (0-0.6); ABS Lymphocytes 3.2 10^3/ul (1.0-4.8); ABS Monocytes 0.8 10^3/ul (0-0.8); ABS Neutrophils 5.7 10^3/ul (1.5-7.7); ABS Nucleated RBC 0 10^3/ul; Eosinophil % 1.4 % (0-6); Hematocrit 43 % (42-52); Hemoglobin 14.7 g/dl (14.0-18.0); Lymphocyte % 31.9 % (25-47); Mean Corpuscular HGB Conc 34 g/dl (31-36); Mean Corpuscular Hemoglobin 33 pg (27-31); Mean Corpuscular Volume 98 fL (80-94); Mean Platelet Volume 8.1 fL (7.4-10.4); Nucleated Red Blood Cells % 0.1; Platelet Count 191 10^3/ul (150-450); Red Blood Count 4.44 10^6/ul (4.00-5.40); Red Cell Distribution Width 13 % (10.5-15); White Blood Count 9.9 10^3/ul (3.5-10.8)
--- OUTSIDE RECORDS SUMMARY | 2018-09-19 21:47 | XMS REPORT ---
:1985 External Reference #:[id number] Author Organization [employer] Address [address] [place] [address] Phone [phone] Care Team Providers Name Role Phone Juan Pablo Sosa MD Primary Care Physician Unavailable Payers Type Date Identification Numbers Payment Provider Subscriber Commercial Effective: Policy Number: BS Facets Tre Green 2016 [id number] PayID: [id number] [address] [place] [id number] Problems Description No Information Family History Date Family Member(s) Problem(s) Comments Father due to Cancer () Mother Hypertension Mother Breast Cancer Siblings 1 brother - HTN Social History Type Date Description Comments Cigarette Use Light tobacco smoker (10 or fewer cigarettes/day) ETOH Use Currently consumes alcohol 12 per week Smoking Patient is a current smoker, smokes 2 cigarettes daily every day Recreational Drug Use Regularly uses Marijuana Daily Caffeine Does Not Consume Caffeine Exercise Type/Frequency Does not exercise Allergies, Adverse Reactions, Alerts Description No Information Medications Medication Date Status Form Strength Qnty SIG Indications Ordering Provider Metoprolol Active Tablets ER 25mg 30tabs 1 by Gilberto Shi Succinate ER 017 24HR mouth Mauser, every M.D. day No Active Hx Unknown Medications 017 - 017 Vital Signs Date Vital Result Comment 03/16/2017 Height 69 inches 5'9" Weight 187.50 lb with shoes Heart Rate 72 /min BP Systolic Sitting 138 mmHg LA reg cuff BP Diastolic Sitting 90 mmHg LA reg cuff BMI (Body Mass Index) 27.7 kg/m2 Ejection Fraction 40% - 45% echo 10/17/16 Results Description No Information Procedures Date CPT Code Description Status 05/05/2017 61582 EKG, Interpretation Only Completed 04/18/2017 77882 ECHO Transthoracic, Real-Time 2D With Doppler And Color Completed Flow 03/16/2017 56294 EKG Tracing & Interpretation Completed 10/18/2016 80344 Color Flow Doppler/Interp & Reprt Completed 10/18/2016 97807 Pulse Wave/Continuous-Interp.RPT Completed 10/18/2016 99614 Echocardiography, Transesophageal, Real Time W/Image 2D Completed W/W/O M-M 10/18/2016 92451 EKG, Interpretation Only Completed 10/18/2016 92164 Cardioversion Completed 10/18/2016 34472 Cardioversion Completed 10/17/2016 13113 ECHO Transthorasic Realtime 2D W Doppler & Color Flow Completed Hosp Encounters Type Date Location Provider CPT E/M Dx [facility] [place] [address] I48.0 1:22p [facility] fAshin F10.10 Office Visit 03/16/2017 3:00p [facility] Gilberto Garcia, [address]79[address] I48.92 Afshin R94.31 R55 I42.9 Office Visit 10/18/2016 1:12p [facility] ,rosa Sotelo, [address] I48.92 Hospitalancelmo [facility] Office Visit 10/17/2016 2:40p [facility] Gilberto Shi [address]39[address] I48.92 Afshin Garcia R55 Office Visit 10/16/2016 2:43p [facility] Gilberto Garcia, [address]07[address] I48.92 Afshin R55 Office Visit 10/16/2016 1:12p [facility] Ishan Argueta, [address] I48.2 [facility]oc,[facility] Hospitalists Plan of Care 03/16/2017 - Gilberto Garcia M.D.I48.92 Unspecified atrial flutterFollow up: ov Elina 2 weeks.R94.31 Abnormal electrocardiogram [ECG] [EKG]R55 Syncope and collapseNew Orders:Stress Test, Exercise OzurwxxpvrvoquG87.9 Cardiomyopathy, unspecified
--- OUTSIDE RECORDS SUMMARY | 2018-09-19 21:47 | XMS REPORT ---
:1985 External Reference #:[id number] Author Organization [facility] Address [address] [facility] [place] [address] [place] [address] Phone [phone] Care Team Providers Name Role Phone Juan Pablo Sosa MD Primary Care Physician Unavailable Payers Type Date Identification Numbers Payment Provider Subscriber Commercial Effective: Policy Number: BS Facets Tre Green 2016 [id number] PayID: [id number] [address] [place] [id number] Problems Description No Information Family History Date [...] Procedures Date CPT Code Description Status 05/05/2017 59514 EKG, Interpretation Only Completed 04/18/2017 47334 ECHO Transthoracic, Real-Time 2D With Doppler And Color Completed Flow 03/16/2017 22049 EKG Tracing & Interpretation Completed 10/18/2016 25708 Color Flow Doppler/Interp & Reprt Completed 10/18/2016 67076 Pulse Wave/Continuous-Interp.RPT Completed 10/18/2016 22303 Echocardiography, Transesophageal, Real Time W/Image 2D Completed W/W/O M-M 10/18/2016 82667 EKG, Interpretation Only Completed 10/18/2016 07726 Cardioversion Completed 10/18/2016 71293 Cardioversion Completed 10/17/2016 31376 ECHO Transthorasic Realtime 2D W Doppler & Color Flow Completed Hosp Encounters Type Date Location Provider CPT E/M Dx [facility] [place] [address] I48.0 1:[facility]p [facility] Afshin F10.10 Office Visit 03/16/2017 3:00p [facility] Gilberto Garcia, [address] I48.92 Afshin R94.31 R55 I42.9 Office Visit 10/18/2016 1:12p [facility] ,rosa Sotelo, [address] I48.92 Hospitalancelmo [facility] Office Visit 10/17/2016 2:40p [facility] Gilberto Shi [address] I48.92 Afshin Garcia R55 Office Visit 10/16/2016 2:43p [facility] Gilberto Garcia, [address] I48.92 Afshin R55 Office Visit 10/16/2016 1:12p [facility] Ishan Argueta, [address] I48.2 Assoc,pc [place] Hospitalists Plan of Care 03/16/2017 - Gilberto Garcia M.D.I48.92 Unspecified atrial flutterFollow up: ov Elina 2 weeks.R94.31 Abnormal electrocardiogram [ECG] [EKG]R55 Syncope and collapseNew Orders:Stress Test, Exercise SffdnwekbyvvsqB20.9 Cardiomyopathy, unspecified
[2018-09-19 21:56] LABS: INR 0.83 (0.77-1.02)
--- NOTE | 2018-09-19 21:58 | ED ---
Palpitations / Dysrhythmia - HPI Summary HPI Summary: This patient is a 32 year old M presenting to [facility] with a chief complaint of heart palpitations since earlier this evening. Pt was seen at [facility] for similar symptoms 3 weeks ago and was admitted with AFib. Patient notes these symptoms are less severe than when he was last admitted. The patient rates the pain 0/10 in severity. Symptoms aggravated by exertion. Symptoms alleviated by nothing. Patient denies nausea or vomiting. - History of Current Complaint Chief Complaint: EDDysrhythmPalp Time Seen by Provider: 09/19/18 21:25 Hx Obtained From: Patient Onset/Duration: Sudden Onset, Lasting Hours, Still Present Timing: Constant Severity Initially: Mild Severity Currently: Mild Character: Irregular Aggravating: Exertion Alleviating: Nothing Associated Signs & Symptoms: Negative Related History: Similar Episode/Dx as - 3 weeks ago - Allergy/Home Medications Allergies/Adverse Reactions: Allergies Allergy/AdvReac Type Severity Reaction Status Date / Time No Known Allergies Allergy Verified 09/19/18 21:15 PMH/Surg Hx/FS Hx/Imm Hx Endocrine/Hematology History: Denies: Hx Diabetes Cardiovascular History: Reports: Hx Angina, Hx Atrial Fibrillation Denies: Hx Coronary Artery Disease, Hx Hypercholesterolemia, Hx Hypertension , Hx Myocardial Infarction, Hx Valvular Heart Disease Respiratory History: Denies: Hx Asthma, Hx Chronic Obstructive Pulmonary Disease (COPD) Sensory History: Denies: Hx Contacts or Glasses, Hx Hearing Aid Opthamlomology History: Denies: Hx Contacts or Glasses - Cancer History Cancer Type, Location and Year: None reported - Surgical History Surgery Procedure, Year, and Place: Appendectomy Infectious Disease History: No Infectious Disease History: Reports: Hx Shingles Denies: Traveled Outside the [place] in Last 30 Days - Family History Known Family History: Positive: Hypertension - mother, brother, Diabetes - Social History Alcohol Use: Daily Alcohol Amount: 12 per week Hx Substance Use: Yes Substance Use Type: Reports: Marijuana Substance Use Comment - Amount & Last Used: last used 05/04/2017 Hx Tobacco Use: Yes Smoking Status (MU): Light Every Day Tobacco Smoker Type: Cigarettes Review of Systems Negative: Fever Negative: Epistaxis Positive: Palpitations - irregular Negative: Cough Negative: Vomiting, Nausea All Other Systems Reviewed And Are Negative: Yes Physical Exam - Summary Physical Exam Summary: VITAL SIGNS: Reviewed. GENERAL: Patient is a well-developed and nourished MALE who is lying comfortable in the stretcher. Patient is not in any acute respiratory distress. HEAD AND FACE: No signs of trauma. No ecchymosis, hematomas or skull depressions. No sinus tenderness. EYES: PERRLA, EOMI x 2, No injected conjunctiva, no nystagmus. EARS: Hearing grossly intact. Ear canals and tympanic membranes are within normal limits. MOUTH: Oropharynx within normal limits. NECK: Supple, trachea is midline, no adenopathy, no JVD, no carotid bruit, no c- spine tenderness, neck with full ROM. CHEST: Symmetric, no tenderness at palpation LUNGS: Clear to auscultation bilaterally. No wheezing or crackles. CVS: Tachycardia and irregular rhythm, S1 and S2 present, no murmurs or gallops appreciated. ABDOMEN: Soft, non-tender. No signs of distention. No rebound no guarding, and no masses palpated. Bowel sounds are normal. EXTREMITIES: FROM in all major joints, no edema, no cyanosis or clubbing. NEURO: Alert and oriented x 3. No acute neurological deficits. Speech is normal and follows commands. SKIN: Dry and warm Triage Information Reviewed: Yes Vital Signs On Initial Exam: Initial Vitals Temp Pulse Resp BP Pulse Ox 98.6 F 121 18 135/90 99 09/19/18 21:13 09/19/18 21:13 09/19/18 21:13 09/19/18 21:13 09/19/18 21:13 Vital Signs Reviewed: Yes Procedures - Procedure Summary Procedure Summary: Moderate sedation: After obtaining informed consent from patient, we followed conscious sedation protocol and administered 100 mg Fentanyl and 100 mg Versed IV. Vital signs remained stable throughout procedure. No reversal agents were used. Time spent was 15 minutes. - Additional Procedures Additional Procedures: cardioversion/defib - After informed consent from patient and using moderate sedation, patient was cardioverted. We used biphasic current 100 joules. Patient converted to sinus rhythm on 1st attempt. Diagnostics - Vital Signs Vital Signs Temp Pulse Resp BP Pulse Ox 09/19/18 21:24 111 15 128/77 97 09/19/18 21:22 17 09/19/18 21:13 98.6 F 121 18 135/90 99 - Laboratory Lab Results: Lab Results 09/19/18 Range/Units 21:33 WBC 9.9 (3.5-10.8) 10^3/ul RBC 4.44 (4.00-5.40) 10^6/ul Hgb 14.7 (14.0-18.0) g/dl Hct 43 (42-52) % MCV 98 H (80-94) fL MCH 33 H (27-31) pg MCHC 34 (31-36) g/dl RDW 13 (10.5-15) % Plt Count 191 (150-450) 10^3/ul MPV 8.1 (7.4-10.4) fL Neut % (Auto) 57.8 (38-83) % Lymph % (Auto) 31.9 (25-47) % [place] % (Auto) 8.6 H (0-7) % Eos % (Auto) 1.4 (0-6) % Baso % (Auto) 0.3 (0-2) % Absolute Neuts (auto) 5.7 (1.5-7.7) 10^3/ul Absolute Lymphs (auto) 3.2 (1.0-4.8) 10^3/ul Absolute Monos (auto) 0.8 (0-0.8) 10^3/ul Absolute Eos (auto) 0.1 (0-0.6) 10^3/ul Absolute Basos (auto) 0 (0-0.2) 10^3/ul Absolute Nucleated RBC 0 10^3/ul Nucleated RBC % 0.1 Result Diagrams: 09/19/18 21:33 18 21:33 Lab Statement: Any lab studies that have been ordered have been reviewed, and results considered in the medical decision making process. - EKG 21:33 Cardiac Rate: Tachycardia - at 121 bpm EKG Rhythm: Atrial Fibrillation Summary of EKG Findings: AFib at 121 bpm with j-point elevation 00:06 Cardiac Rate: NL - at 72 bpm EKG Rhythm: Sinus Rhythm Re-Evaluation - Re-Evaluation 1st re-eval Re-Evaluation Time: 00:05 Change: Improved Comment: Cardioversion was performed 2nd re-eval Re-Evaluation Time: 00:24 Change: Improved Comment: Discussed discharge plan with patient. Course/Dx - Course Course Of Treatment: This patient is a 32 year old M with hx AFib reporting heart palpitations since earlier this evening. Pt was seen at [facility] for similar symptoms 3 weeks ago. An EKG at 21:33 reveals Afib at 121 bpm with J-point elevation. After obtaining informed consent from patient, we followed conscious sedation protocol and administered 100 mg fentanyl and 100 mg Versed IV. Vital signs remained stable throughout procedure. No reversal agents were used. Time spent was 15 minutes. After informed consent from patient and using moderate sedation, patient was cardioverted. We used biphasic current 100 joules. Patient converted to sinus rhythm on 1st attempt. An EKG at 00:06 reveals NSR at 72 bpm with J-point elevation. Test results with no significant abnormalities. In the ED course the patient was given Digoxin, Diltiazem, IV fluids, Tambocor, fentanyl, and Versed. Pt has been taking Flecainide 50 mg twice a day. We recommend increase to 100 mg twice daily. Patient will be discharged with follow up from Dr. Up, payment poster. The patient is agreeable with this plan. - Diagnoses Provider Diagnoses: Paroxysmal atrial fibrillation Discharge - Sign-Out/Discharge Documenting (check all that apply): Patient Departure - discharge home - Discharge Plan Condition: Stable Disposition: HOME Patient Education Materials: A-fib (Atrial Fibrillation) (ED), Moderate Sedation (ED) Referrals: Juan Pablo Sosa MD [Primary Care Provider] - Alexandra Up MD [Medical Doctor] - 1 Day Additional Instructions: Follow up with Dr. Up, payment poster, in 1-2 days. We recommend that he increase his Flecainide to 100 mg twice a day. Return to the emergency room with any new or worsening symptoms. - Attestation Statements Document Initiated by Scribe: Yes Documenting Scribe: Regina London Provider For Whom Davisibe is Documenting (Include Credential): Patricia Merino MD Scribe Attestation: Regina Taylor, william for Patricia Merino MD on 09/20/18 at 0039.
[2018-09-19] MEDS ORDERED: Flecainide TAB* 100 MG PO ONE (22:00)
[2018-09-19 22:05] LABS: EGFR Non-African American 105.9 (>60)
[2018-09-19] MEDS ORDERED: fentaNYL* 50 MCG/ML 2 ML VIAL (100 MCG VIAL) IV SLOW PU ONE (23:11)
[2018-09-19] MEDS ORDERED: Midazolam* 1 MG/ML 5 ML VIAL (5 MG) SLOW PUSH ONE (23:11)
[2018-09-19] MEDS ORDERED: Naloxone* 0.4 MG/ML 10 ML VIAL ONE (23:43)
[2018-09-19] MEDS ORDERED: Flumazenil* 0.1 MG/ML 5 ML MDV ONE (23:43)
[2018-09-20 00:48] VITALS: BP 117/60
[2018-09-20] MEDS ORDERED: FLECAINIDE 50 MG PO ONE (21:31)
== END 2018-09-20 01:14 | disposition home or self-care (01) ==
LOC: ED 21:12
DX: I48.0 Paroxysmal atrial fibrillation (principal); F17.210 Nicotine dependence, cigarettes, uncomplicated
CPT/HCPCS: 36415; 80053; 83605; 83735; 83880; 84443; 84484; 85025; 85610; 85730; 92960; 93005; 96360; 96361; 99156; 99285; A9270-GY; J2250; J2310; J3010

== ENCOUNTER 2018-09-22 04:20 | Emergency (ER) | payer BC ==
[2018-09-22] MEDS ORDERED: Midazolam* 1 MG/ML 5 ML VIAL (5 MG) IV ONE (04:32)
[2018-09-22] MEDS ORDERED: NS 0.9% 1000 ML* 1,000 ML IV ONE ×2 (04:32→05:38)
[2018-09-22] MEDS ORDERED: fentaNYL* 50 MCG/ML 2 ML VIAL (100 MCG VIAL) ONE (04:33)
[2018-09-22] MEDS ORDERED: Midazolam concentrated* 5 MG/ML 1 ml VIAL ONE (04:34)
--- NOTE | 2018-09-22 04:34 | ED ---
Palpitations / Dysrhythmia - HPI Summary HPI Summary: This pt is a 32 y/o male, with hx of paroxysmal afib, presenting to [facility] c/o heart palpitations today. Pt states he went to bed about 2 hours ago and was feeling well. He notes he woke up and had heart palpitations characterized as fast and irregular. Pt additionally reports chest pain. Denies dizziness, SOB, nausea, vomiting, fever. He last ate at 20:00 last night. He reports he was in the ED on 09/19/18 for the same symptoms and was cardioverted to sinus rhythm. Upon discharge 3 days ago pt was instructed to increase his dose of Flecainide to 100 mg BID from 50 mg. Pt states he is still only taking 50 mg of Flecainide BID. His production zone leader is Dr. Up and has not seen her in the office yet. Pt used to see Dr. Garcia and the last time he saw him was about 1 year ago. - History of Current Complaint Hx Obtained From: Patient Onset/Duration: Lasting Hours, Still Present Timing: Constant Severity Currently: Severe Character: Fast, Irregular Aggravating: Nothing Alleviating: Nothing Associated Signs & Symptoms: Chest Pain Related History: Similar Episode/Dx as - 3 days ago on 09/19/18 - Allergy/Home Medications Allergies/Adverse Reactions: Allergies Allergy/AdvReac Type Severity Reaction Status Date / Time No Known Allergies Allergy Verified 09/19/18 21:15 PMH/Surg Hx/FS Hx/Imm Hx Endocrine/Hematology History: Denies: Hx Diabetes Cardiovascular History: Reports: Hx Angina, Hx Atrial Fibrillation Denies: Hx Coronary Artery Disease, Hx Hypercholesterolemia, Hx Hypertension , Hx Myocardial Infarction, Hx Valvular Heart Disease Respiratory History: Denies: Hx Asthma, Hx Chronic Obstructive Pulmonary Disease (COPD) Sensory History: Denies: Hx Contacts or Glasses, Hx Hearing Aid Opthamlomology History: Denies: Hx Contacts or Glasses - Cancer History Cancer Type, Location and Year: None reported - Surgical History Surgery Procedure, Year, and Place: Appendectomy Infectious Disease History: No Infectious Disease History: Reports: Hx Shingles Denies: Traveled Outside the [place] in Last 30 Days - Family History Known Family History: Positive: Hypertension - mother, brother, Diabetes - Social History Alcohol Use: Daily Alcohol Amount: 12 per week Hx Substance Use: Yes Substance Use Type: Reports: Marijuana Substance Use Comment - Amount & Last Used: last used 05/04/2017 Hx Tobacco Use: Yes Smoking Status (MU): Light Every Day Tobacco Smoker Type: Cigarettes Review of Systems Negative: Fever, Chills Positive: Palpitations, Chest Pain Negative: Shortness Of Breath Negative: Vomiting, Nausea Neurological: Other - NEG: dizziness All Other Systems Reviewed And Are Negative: Yes Physical Exam - Summary Physical Exam Summary: VITAL SIGNS: Reviewed. GENERAL: Patient is a well-developed and nourished male who is lying comfortable in the stretcher. Patient is not in any acute respiratory distress. HEAD AND FACE: No signs of trauma. No ecchymosis, hematomas or skull depressions. No sinus tenderness. EYES: PERRLA, EOMI x 2, No injected conjunctiva, no nystagmus. EARS: Hearing grossly intact. Ear canals and tympanic membranes are within normal limits. MOUTH: Oropharynx within normal limits. NECK: Supple, trachea is midline, no adenopathy, no JVD, no carotid bruit, no c- spine tenderness, neck with full ROM. CHEST: Symmetric, no tenderness at palpation LUNGS: Clear to auscultation bilaterally. No wheezing or crackles. CVS: Tachycardic, S1 and S2 present, no murmurs or gallops appreciated. ABDOMEN: Soft, non-tender. No signs of distention. No rebound no guarding, and no masses palpated. Bowel sounds are normal. EXTREMITIES: FROM in all major joints, no edema, no cyanosis or clubbing. NEURO: Alert and oriented x 3. No acute neurological deficits. Speech is normal and follows commands. SKIN: Dry and warm Triage Information Reviewed: Yes Vital Signs On Initial Exam: Initial Vitals Temp Pulse Resp BP Pulse Ox 98.6 F 180 18 105/80 100 09/22/18 04:26 09/22/18 04:26 09/22/18 04:26 09/22/18 04:26 09/22/18 04:26 Vital Signs Reviewed: Yes Procedures - Procedure Summary Procedure Summary: Moderate Sedation Procedure Note: Written consent was obtained from the pt. We used the protocol for moderate sedation and administered 100 mcg Fentanyl IV and 5 mg Versed IV. This was enough moderate sedation. Vital signs were stable throughout the procedure. No reversal agents were used. Pt tolerated the procedure well. Time spent was 15 minutes. Cardioversion Procedure Note: Under moderate sedation the pt was cardioverted. We used biphasic current 100 Joules. Pt was successfully converted to sinus rhythm. Pt tolerated the procedure well. Diagnostics - Vital Signs Vital Signs Temp Pulse Resp BP Pulse Ox 09/22/18 04:26 98.6 F 180 18 105/80 100 - Laboratory Result Diagrams: 09/22/18 04:51 09/22/18 04:51 Lab Statement: Any lab studies that have been ordered have been reviewed, and results considered in the medical decision making process. - EKG 04:25 Cardiac Rate: Tachycardia - at 179 bpm Summary of EKG Findings: Atrial fibrillation and Atrial flutter at 179 bpm 04:44 Post Cardioversion Cardiac Rate: NL - at 82 bpm EKG Rhythm: Sinus Rhythm Summary of EKG Findings: Normal axis. Normal interval. No ischemic changes Re-Evaluation - Re-Evaluation First Eval Re-Evaluation Time: 04:40 Comment: Performing cardioversion Second Eval Re-Evaluation Time: 06:34 Comment: I discussed Dr. Enriquez's recommendations with the pt. Pt will be discharged home. Course/Dx - Course Assessment/Plan: Pt is a 32 y/o male, with hx of paroxysmal afib, who presents to the ED with heart palpitations today. Pt states he went to bed about 2 hours ago and was feeling well. He notes he woke up and had heart palpitations characterized as fast and irregular. Pt additionally reports chest discomfort. Denies dizziness, SOB, nausea, vomiting, fever. He last ate at 20:00 last night. He was in the ED 2 days ago for the same symptoms and was cardioverted to sinus rhythm. Pt was instructed then to increased his dose of Flecainide to 100 mg BID instead of 50 mg BID. Pt did not do this. Pt's blood pressure was low 107/71 when he arrived to the ED. Pt was cardioverted because he was hypotensive. Pt had moderate sedation with 100 mcg fentanyl and 5 mg versed, and was cardioverted to sinus rhythm sucessfully with 100 Joules biphasic. Pt tolerated the procedures well. Please see the procedure notes. The last time he was in the ED 2 days ago he had cardioversion. In the ED course pt was also given IV fluids and Flecainide. Test results without any significant abnormalities. Urine toxicology shows positive benzodiazepines and cannabinoids. After cardioversion pt remained in sinus rhythm the whole time he was in the ED. I discussed the case with Dr. Enriquez, production zone leader, who recommends to increase Flecainide to 100 mg BID and follow up with his painter spring in [place] as planned. I discussed this with the pt and he understands and agrees. Pt will be discharged home with follow up from his painter spring in [place]. Pt was instructed to return to the ED for any worsening symptoms. - Diagnoses Provider Diagnoses: Atrial fibrillation/flutter - Physician Notifications Discussed Care Of Patient With: Brian Enriquez Time Discussed With Above Provider: 06:28 Instructed by Provider To: Other - I discussed the case with Dr. Enriquez, production zone leader, who recommends to increase Flecainide to 100 mg BID and follow up with his painter spring in [place] as planned. Discharge - Sign-Out/Discharge Documenting (check all that apply): Patient Departure - Discharge home - Discharge Plan Condition: Stable Disposition: HOME Prescriptions: Flecainide TAB* [Tambocor TAB*] 100 mg PO BID #60 tab Patient Education Materials: Atrial Flutter (ED), A-fib (Atrial Fibrillation) ( ED), Moderate Sedation (ED) Referrals: Juan Pablo Sosa MD [Primary Care Provider] - Additional Instructions: INCREASE your Flecainide dose to 100 mg twice a day. Follow up with your painter spring in [place] as planned RETURN TO EMERGENCY DEPARTMENT FOR ANY NEW OR WORSENING SYMPTOMS. - Attestation Statements Document Initiated by Scribe: Yes Documenting Scribe: Dora Hensley Provider For Whom Scribe is Documenting (Include Credential): Patricia Merino MD Scribe Attestation: Dora Tayolr, scribed for Patricia Merino MD on 09/22/18 at 0640.
[2018-09-22] MEDS ORDERED: fentaNYL* 50 MCG/ML 2 ML VIAL (100 MCG VIAL) IV SLOW PU ONE (04:40)
[2018-09-22] MEDS ORDERED: Flecainide TAB* 100 MG PO ONE (04:43)
[2018-09-22 04:57] LABS: ABS Basophils 0 10^3/ul (0-0.2); ABS Eosinophils 0.1 10^3/ul (0-0.6); ABS Lymphocytes 3.3 10^3/ul (1.0-4.8); ABS Monocytes 0.7 10^3/ul (0-0.8); ABS Neutrophils 4.1 10^3/ul (1.5-7.7); ABS Nucleated RBC 0 10^3/ul; Eosinophil % 1.5 % (0-6); Hematocrit 42 % (42-52); Hemoglobin 14.2 g/dl (14.0-18.0); Lymphocyte % 40.1 % (25-47); Mean Corpuscular HGB Conc 34 g/dl (31-36); Mean Corpuscular Hemoglobin 33 pg (27-31); Mean Corpuscular Volume 98 fL (80-94); Mean Platelet Volume 7.8 fL (7.4-10.4); Nucleated Red Blood Cells % 0.2; Platelet Count 205 10^3/ul (150-450); Red Cell Distribution Width 13 % (10.5-15); White Blood Count 8.3 10^3/ul (3.5-10.8)
[2018-09-22 05:11] LABS: INR 0.87 (0.77-1.02)
[2018-09-22 05:15] LABS: EGFR Non-African American 110.4 (>60)
[2018-09-22 05:51] LABS: Urine Appearance Clear; Urine Blood Negative (Negative); Urine Color Straw; Urine Ketones Negative (Negative); Urine Protein Negative (Negative); Urine Specific Gravity 1.003 (1.010-1.030); Urine Urobilinogen Negative (Negative)
[2018-09-22 07:04] VITALS: BP 105/76
== END 2018-09-22 06:50 | disposition home or self-care (01) ==
LOC: ED 04:20
DX: I48.91 Unspecified atrial fibrillation (principal); I48.92 Unspecified atrial flutter; F17.210 Nicotine dependence, cigarettes, uncomplicated
CPT/HCPCS: 36415; 80053; 80307; 81003; 83735; 84484; 85025; 85610; 85730; 92960; 93005; 96374; 99156; 99157; 99285; A9270-GY; J2250; J3010

== ENCOUNTER 2019-03-02 13:30 | Emergency (ER) | payer BC ==
[2019-03-02] MEDS ORDERED: NS 0.9% 1000 ML** 1,000 ML IV ONE (13:47)
--- NOTE | 2019-03-02 13:54 | ED ---
HPI Cardiac - HPI Summary HPI Summary: Patient is a 33 y/o M presenting to ED with complaints of episodes of chest pain , palpitations, nausea, dizziness, and SOB. 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 Today, patient had gotten up this morning and had breakfast. He notes he smoked marijuana this morning. Later, while patient was lying down, he suddenly began to experience rapid palpitations alongside upper midsternal chest pain, SOB, dizziness, and nausea. He states that chest pain lasted a few minutes and subsequently subsided alongside with all other Sx. He decided to come to ED and had another episode of Sx onset again while in car. In room, he states that episodes were about 3-4 minutes and 10-15 minutes apart today. Chest pain did not radiate, chest pain is characterized as tightness. He denies calf pain. Patient reports that he had a similar episode of symptoms last week as well which had spontaneously resolved. He notes that prior to last week, he had had no episodes of palpitations since before his ablation. Patient had scheduled appointment with PCP Dr. Sosa after episode of Sx last week, appointment is upcoming in a few days. Patient states that his WPW was somewhat similar to present Sx. He notes that before his ablation, with his WPW, his heart would race and, depending on what he was doing, he would go into afib. Dr. Up is silk conditioner. No FMHx of WPW but endorses FMHx of HTN. No PMHx of HTN or CHF. No PMHx or FMHx of blood clots. PSHx of appendectomy. Patient has been taking ASA 325 MG daily, patient states he "tries" to take ASA daily. No other medical history is reported. Patient is a current smoker, drinks alcohol, smokes marijuana. While patient reports no Sx present in the room, on triage, pain is rated 4/10, exertion is noted to aggravate Sx, nothing is reported to alleviate Sx. Home medications and allergies are reviewed. BP 131/92, o2 97, pulse 63. Home Medications Aspirin TAB* [Aspirin 325 MG TAB*] 325 mg PO Q6H PRN 03/02/19 [History Confirmed 03/02/19] Multivitamins/Minerals TAB* [Theragran/minerals TAB*] 1 tab PO DAILY 03/02/19 [ History Confirmed 03/02/19] Allergies Allergy/AdvReac Type Severity Reaction Status Date / Time No Known Allergies Allergy Verified 03/02/19 13:35 - History of Current Complaint Chief Complaint: EDChestPainROMI Stated Complaint: CHEST PAIN PER PT Time Seen by Provider: 03/02/19 13:46 Hx Obtained From: Patient Onset/Duration: Started Hours Ago, Started Weeks Ago, Resolved Timing: Intermittent, Lasting Minutes - episodes are reported to last 3-4 minutes Current Severity: Moderate - 4/10 Pain Intensity: 4 Pain Scale Used: 0-10 Numeric - 4/10 Chest Pain Location: Upper Sternal Chest Pain Radiates: No Character: Fast, Tightness Aggravating Factor(s): Exertion Alleviating Factor(s): Nothing Associated Signs and Symptoms: Positive: Chest Pain, Dizziness, Shortness of Breath, Nausea, Palpitations. Negative: Calf Pain/Swelling - Additional Pertinent History Primary Care Physician: YANE - Allergy/Home Medications Allergies/Adverse Reactions: Allergies Allergy/AdvReac Type Severity Reaction Status Date / Time No Known Allergies Allergy Verified 03/02/19 13:35 Home Medications: Home Medications Aspirin TAB* [Aspirin 325 MG TAB*] 325 mg PO Q6H PRN 03/02/19 [History Confirmed 03/02/19] Multivitamins/Minerals TAB* [Theragran/minerals TAB*] 1 tab PO DAILY 03/02/19 [ History Confirmed 03/02/19] PMH/Surg Hx/FS Hx/Imm Hx Endocrine/Hematology History: Denies: Hx Diabetes Cardiovascular History: Reports: Hx Angina, Hx Atrial Fibrillation, Other Cardiovascular Problems/Disorders - WPW Denies: Hx Congestive Heart Failure, Hx Coronary Artery Disease, Hx Hypercholesterolemia, Hx Hypertension, Hx Myocardial Infarction, Hx Valvular Heart Disease Respiratory History: Denies: Hx Asthma, Hx Chronic Obstructive Pulmonary Disease (COPD) Sensory History: Denies: Hx Contacts or Glasses, Hx Hearing Aid Opthamlomology History: Denies: Hx Contacts or Glasses - Cancer History Cancer Type, Location and Year: None reported - Surgical History Surgery Procedure, Year, and Place: Appendectomy. ablation 2018 Infectious Disease History: No Infectious Disease History: Reports: Hx Shingles Denies: Traveled Outside the [place] in Last 30 Days - Family History Known Family History: Positive: Hypertension - mother, brother, Diabetes, Other - no FMHx of WPW Negative: Blood Disorder - no FMHx of blood clots - Social History Alcohol Use: Daily Alcohol Amount: 12 per week Hx Substance Use: Yes Substance Use Type: Reports: Marijuana Substance Use Comment - Amount & Last Used: last used 05/04/2017 Hx Tobacco Use: Yes Smoking Status (MU): Light Every Day Tobacco Smoker Type: Cigarettes Review of Systems Positive: Palpitations, Chest Pain Positive: Shortness Of Breath Positive: Nausea Musculoskeletal: Other - NEGATIVE - CALF PAIN Neurological: Other - POSITIVE - DIZZINESS All Other Systems Reviewed And Are Negative: Yes Physical Exam - Summary Physical Exam Summary: Appearance: Well-appearing, no pain distress, well-nourished Skin: Warm, color reflects adequate perfusion, dry Head: Normal Head/Face inspection, atraumatic Eyes: Conjunctiva clear ENT: Normal inspection Neck: Supple, no nodes, no JVD Respiratory: Lungs clear, normal breath sounds, no respiratory distress Cardio: RRR, No murmur, pulses normal, brisk capillary refill Abdomen: Soft, nontender Bowel sounds: Present Musculoskeletal: Strength Intact/ROM intact, no calf tenderness, no edema. Psychological: Normal Neuro: Alert, muscle tone normal, no focal deficit Triage Information Reviewed: Yes Vital Signs On Initial Exam: Initial Vitals Temp Pulse Resp BP Pulse Ox 98.3 F 98 16 138/92 99 03/02/19 13:35 03/02/19 13:35 03/02/19 13:35 03/02/19 13:35 03/02/19 13:35 Vital Signs Reviewed: Yes Diagnostics - Vital Signs Vital Signs Temp Pulse Resp BP Pulse Ox 03/02/19 13:35 98.3 F 98 16 138/92 99 - Laboratory Result Diagrams: 03/02/19 14:27 03/02/19 14:27 Lab Statement: Any lab studies that have been ordered have been reviewed, and results considered in the medical decision making process. - Radiology CHEST X-RAY Radiology Interpretation Completed By: Radiologist Summary of Radiographic Findings: IMPRESSION: NO ACTIVE CARDIOPULMONARY DISEASE. THIS REPORT WAS REVIEWED BY DR. RENO. - EKG 1342 Cardiac Rate: NL - rate of 79 BPM EKG Rhythm: Sinus Rhythm ST Segment: Non-Specific Ectopy: None Summary of EKG Findings: EKG showed sinus rhythm with rate of 79 BPM, normal AVIVCT, normal QTc, no acute changes, no ectopy, non-specific ST, no delta wave , no changes compared with 09/22/18. Re-Evaluation - Re-Evaluation First Eval Re-Evaluation Time: 17:53 Change: Improved Comment: BP is 125/75, pulse 78. No chest pain, no palpitations, no SOB. Results of labs and tests were discussed with patient. Patient is agreeable with discharge to home and follow up with PCP and silk conditioner. Disposition - Course Course Of Treatment: Patient is a 33 y/o M presenting to ED with complaints of episodes of chest pain, palpitations, nausea, dizziness, and SOB. 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 Today, patient had gotten up this morning and had breakfast. He notes he smoked marijuana this morning. Later, while patient was lying down, he suddenly began to experience rapid palpitations alongside upper midsternal chest pain, SOB, dizziness, and nausea. He states that chest pain lasted a few minutes and subsequently subsided alongside with all other Sx. He decided to come to ED and had another episodes of Sx onset again while in car. In room, he states that episodes were about 3-4 minutes and 10-15 minutes apart today. Chest pain did not radiate, chest pain is characterized as tightness. He denies calf pain. Patient reports that he had a similar episode of symptoms last week as well which had spontaneously resolved. He notes that prior to last week, he had had no episodes of palpitations since before his ablation. Patient had scheduled appointment with PCP Dr. Sosa after episode of Sx last week, appointment is upcoming in a few days. Patient states that his WPW was somewhat similar to present Sx. He notes that before his ablation, with his WPW, his heart would race and, depending on what he was doing, he would go into afib. Dr. Up is silk conditioner. No FMHx of WPW but endorses FMHx of HTN. No PMHx of HTN or CHF. No PMHx or FMHx of blood clots. PSHx of appendectomy. Home medications and allergies are reviewed. Patient has been taking ASA 325 daily, patient states he "tries" to take ASA daily. No other medical history is reported. Patient is a current smoker, drinks alcohol, smokes marijuana. Physical exam is unremarkable. CXR. IMPRESSION: NO ACTIVE CARDIOPULMONARY DISEASE. EKG showed sinus rhythm with rate of 79 BPM, normal AVIVCT, normal QTc, no acute changes, no ectopy, non-specific ST, no delta wave, no changes compared with 09/22/18. Labs showed MCV 98, MCH 33, T4 4.97, TSH 0.47, CK-MB 1.8. First trop was 0, second was 0. UA was negative. Tox screen was presumptive positive for cannabinoids. During ED course, patient received fluids. 1753 - BP is 125/75, pulse 78. No chest pain, no palpitations, no SOB at present. Results of labs and tests were discussed with patient. Patient is agreeable with discharge to home and follow up with PCP and silk conditioner. - Diagnoses Provider Diagnoses: Palpitations, Hx of prior ablation treatment, History of Qburq-Ynnzlebyr-Fucqt (WPW) syndrome Discharge - Sign-Out/Discharge Documenting (check all that apply): Patient Departure - discharge Patient Received Moderate/Deep Sedation with Procedure: No - Discharge Plan Condition: Stable Disposition: HOME Patient Education Materials: Heart Palpitations (ED) Forms: *Work Release Referrals: Juan Pablo Sosa MD [Primary Care Provider] - 3 Days Alexandra Up MD [Medical Doctor] - 3 Days Additional Instructions: Your labs, chest x-ray, and EKG showed no concerning findings. You should follow up with your silk conditioner, call for an appointment. You should keep your appointment with Dr. Vigil on 03/05/19. Return to the ER if you have any new or worsening symptoms. - Attestation Statements Document Initiated by Scribe: Yes Documenting Scribe: FELIX MARTÍNEZ Provider For Whom Davisibe is Documenting (Include Credential): FARAZ RENO MD Scribe Attestation: FELIX Taylor, scribed for FARAZ RENO MD on 03/03/19 at 0053. Status of Scribe Document: Ready
[2019-03-02 14:40] LABS: ABS Basophils 0 10^3/ul (0-0.2); ABS Eosinophils 0.1 10^3/ul (0-0.6); ABS Lymphocytes 2.1 10^3/ul (1.0-4.8); ABS Monocytes 0.6 10^3/ul (0-0.8); ABS Neutrophils 4.4 10^3/ul (1.5-7.7); ABS Nucleated RBC 0 10^3/ul; Eosinophil % 0.7 %; Hematocrit 44 % (36-46); Hemoglobin 14.9 g/dL (14.0-18.0); Lymphocyte % 29.1 %; Mean Corpuscular HGB Conc 34 g/dL (31-36); Mean Corpuscular Hemoglobin 33 pg (27-31); Mean Corpuscular Volume 98 fL (80-94); Mean Platelet Volume 8.2 fL (7.4-10.4); Nucleated Red Blood Cells % 0.1; Platelet Count 196 10^3/uL (150-450); Red Blood Count 4.48 10^6 /uL (4.18-5.48); Red Cell Distribution Width 13 % (10.5-15); White Blood Count 7.2 10^3/uL (3.5-10.8)
[2019-03-02 14:54] LABS: Albumin 4.4 g/dL (3.2-5.2); BUN/Creatinine Ratio 18.6 (8-20); Calcium 9.4 mg/dL (8.6-10.3); EGFR African American 123.9 (>60); EGFR Non-African American 102.4 (>60); Globulin 2.2 g/dL (2-4); Magnesium 1.9 mg/dL (1.9-2.7); Potassium 3.9 mmol/L (3.5-5.0); Total Bilirubin 0.7 mg/dL (0.2-1.0); Total Protein 6.6 g/dL (6.4-8.9)
[2019-03-02 14:58] LABS: Activated Partial Thrombo Time 28.4 seconds (26.0-36.3); CKMB ng/mL 1.8 ng/mL (0.6-6.3); INR 0.95 (0.77-1.02)
[2019-03-02 15:15] LABS: T4, Total 4.97 mcg/dL (6.09-12.23)
[2019-03-02 15:19] LABS: TSH (Thyroid Stimulating Horm) 0.47 mcIU/mL (0.34-5.60)
[2019-03-02 16:17] LABS: Urine Appearance Clear; Urine Bilirubin Negative (Negative); Urine Blood Negative (Negative); Urine Color Yellow; Urine Glucose Negative (Negative); Urine Ketones Negative (Negative); Urine Nitrite Negative (Negative); Urine Protein Negative (Negative); Urine Specific Gravity 1.008 (1.010-1.030); Urine Urobilinogen Negative (Negative)
[2019-03-02 16:44] LABS: Urine Benzodiazepine Screen None Detected (None Detect); Urine Opiates Screen None Detected (None Detect)
[2019-03-02 18:02] VITALS: BP 125/75
== END 2019-03-02 18:01 | disposition home or self-care (01) ==
LOC: ED 13:30
DX: R00.2 Palpitations (principal); F17.210 Nicotine dependence, cigarettes, uncomplicated; Z79.82 Long term (current) use of aspirin
CPT/HCPCS: 36415; 71045; 80053; 80307; 81003; 82550; 82553; 83605; 83735; 84436; 84443; 84484; 85025; 85610; 85730; 93005; 96360; 99283

== ENCOUNTER 2019-03-11 06:14 | Emergency (ER) | payer BC ==
--- OUTSIDE RECORDS SUMMARY | 2019-03-11 06:28 | XMS REPORT | Continuity of Care Document ---
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 PayID: [id number] SALV[address] Cast[address]anos [id number] Effective: 2017 Policy Number: [id number] [facility] [place] Expires: 2018 Group Name: BC/BS of [facility] [address] PayID: [id number] SALV[place] Castellanos [id number] Effective: 2018 Policy Number: [id number] [facility] [place] Group Name: [employer] [address] PayID: [id number] SALV[address] Castellanos [id number] Advance Directives Description No Information Available Problems Description No Information Family History Date Family Member(s) Observation Comments General Diabetes General COPD General Cancer, Breast General Cancer, Lung Father Cancer, Lung Mother Cancer, Breast Social History Type Date Description Comments Sex Unknown Marital Status Single Occupation Currently Working [place] Tobacco Use Start: Unknown current cigarette smoker 2 cigs/day ETOH Use Currently consumes few glasses of wine alcohol nightly Recreational Drug Use Sporadically uses Cocaine At least some use of cocaine Exercise Type/Frequency Does not exercise Allergies, Adverse Reactions, Alerts Description No Known Drug Allergies Medications Description No Active Medications Immunizations CPT Code Status Date Vaccine Lot # [id number] Given 11/14/2012 Tdap (Adacel) 72803 Refused 05/09/2017 Influenza Virus Vaccine, Quadrivalent, 3 Yr > Quad , Preserv Free Vital Signs Date Vital Result Comment 03/05/2019 11:09am Weight 187.00 lb Weight 84.823 kg BP Systolic 112 mmHg BP Diastolic 72 mmHg Heart Rate 74 /min Body Temperature 98.3 F Respiratory Rate 16 /min O2 % BldC Oximetry 97 % 01/31/2018 10:00am Weight 177.00 lb Weight 80.287 kg BP Systolic 110 mmHg BP Diastolic 62 mmHg Heart Rate 60 /min Body Temperature 98.2 F Respiratory Rate 16 /min O2 % BldC Oximetry 98 % 05/09/2017 3:36pm Weight 184.00 lb Weight 83.462 kg BP Systolic 112 mmHg BP Diastolic 72 mmHg Heart Rate 76 /min Body Temperature 97.7 F Respiratory Rate 16 /min O2 % BldC Oximetry 98 % 02/21/2017 10:30am Weight 185.00 lb Weight 83.916 kg BP Systolic 118 mmHg BP Diastolic 80 mmHg Heart Rate 64 /min Body Temperature 98.0 F Respiratory Rate 16 /min Height 69 inches 5'9" BMI (Body Mass Index) 27.3 kg/m2 O2 % BldC Oximetry 96 % Results Test Date Facility Test Result H/L Range Note Urinalysis Profile 03/02/2019 [facility] Urine Color Yellow [phone] Urine Appearance Clear Urine Specific Aquilla 1.008 Low 1.010-1.030 Urine pH 8.0 N 5-9 Urine Urobilinogen Negative Negative Urine Ketones Negative Negative Urine Protein Negative Negative Urine Leukocytes Negative Negative Urine Blood Negative Negative Urine Nitrite Negative Negative Urine Bilirubin Negative Negative Urine Glucose Negative Negative Laboratory test 03/02/2019 [facility] Thyroxine 4.97 g/dL Low 6.09-12.23 finding [phone] TSH (Thyroid Stimulating Horm) 0.47 mcIU/mL N 0.34-5.60 CKMB 03/02/2019 [facility] CKMB ng/mL 1.8 ng/mL N 0.6-6.3 [phone] Laboratory test 03/02/2019 [facility] Magnesium 1.9 mg/dL N 1.9-2.7 finding [phone] Creatine Kinase 109 U/L N 10-223 Troponin-I (TnI) 0.00 ng/mL <0.04 1 Laboratory test 03/02/2019 [facility] Troponin-I 0.00 ng/mL <0.04 2 finding [phone] (TnI) Urine Drug SCR 03/02/2019 [facility] Urine None None ED & Pain [phone] Amphetamine Detected Detect Clinic Screen Urine Barbiturates Screen None Detected None Detect Urine Benzodiazepine Screen None Detected None Detect Urine Cannabinoids Screen Presumptive Posi <SEE NOTE> Abnormal None Detect 3 Urine Cocaine Screen None Detected None Detect Urine Opiates Screen None Detected None Detect Urine Phencyclidine Screen None Detected None Detect 4 CBC Auto Diff 03/02/2019 [facility] White Blood 7.2 10^3/uL N 3.5-10.8 [phone] Count Red Blood Count 4.48 10^6/uL N 4.18-5.48 Hemoglobin 14.9 g/dL N 14.0-18.0 Hematocrit 44 % N 36-46 Mean Corpuscular Volume 98 fL High 80-94 Mean Corpuscular Hemoglobin 33 pg High 27-31 Mean Corpuscular HGB Conc 34 g/dL N 31-36 Red Cell Distribution Width 13 % N 10.5-15 Platelet Count 196 10^3/uL N 150-450 Mean Platelet Volume 8.2 fL N 7.4-10.4 Abs Neutrophils 4.4 10^3/uL N 1.5-7.7 Abs Lymphocytes 2.1 10^3/uL N 1.0-4.8 Abs Monocytes 0.6 10^3/uL N 0-0.8 Abs Eosinophils 0.1 10^3/uL N 0-0.6 Abs Basophils 0 10^3/uL N 0-0.2 Abs Nucleated RBC 0 10^3/uL Granulocyte % 61.0 % Lymphocyte % 29.1 % Monocyte % 8.8 % Eosinophil % 0.7 % Basophil % 0.4 % Nucleated Red Blood Cells % 0.1 Comp Metabolic Panel 03/02/2019 [facility] Sodium 135 mmol/L N 135-145 [phone] Potassium 3.9 mmol/L N 3.5-5.0 Chloride 105 mmol/L N 101-111 Co2 Carbon Dioxide 24 mmol/L N 22-32 Anion Gap 6 mmol/L N 2-11 Glucose 100 mg/dL N 70-100 Blood Urea Nitrogen 16 mg/dL N 6-24 Creatinine 0.86 mg/dL N 0.67-1.17 BUN/Creatinine Ratio 18.6 N 8-20 Calcium 9.4 mg/dL N 8.6-10.3 Total Protein 6.6 g/dL N 6.4-8.9 Albumin 4.4 g/dL N 3.2-5.2 Globulin 2.2 g/dL N 2-4 Albumin/Globulin Ratio 2.0 N 1-3 Total Bilirubin 0.70 mg/dL N 0.2-1.0 Alkaline Phosphatase 71 U/L N 34-104 Alt 23 U/L N 7-52 Ast 18 U/L N 13-39 Egfr Non- 102.4 >60 Egfr 123.9 >60 5 Laboratory test 03/02/2019 [facility] Partial 28.4 seconds N 26.0-36.3 finding [phone] Thrombo Time PTT Lactic Acid 0.8 mmol/L N 0.5-2.0 6 Inr/Protime 03/02/2019 [facility] Inr 0.95 N 0.77- 1.02 [phone] Urinalysis Profile 09/22/2018 [facility] Urine Color Straw [phone] Urine Appearance Clear Urine Specific Aquilla 1.003 Low 1.010-1.030 Urine pH 6.0 N 5-9 Urine Urobilinogen Negative Negative Urine Ketones Negative Negative Urine Protein Negative Negative Urine Leukocytes Negative Negative Urine Blood Negative Negative Urine Nitrite Negative Negative Urine Bilirubin Negative Negative Urine Glucose Negative Negative Laboratory test 09/22/2018 [facility] Magnesium 2.0 mg/dL N 1.9-2.7 finding [phone] Troponin-I (TnI) 0.00 ng/mL <0.04 Comp Metabolic Panel 09/22/2018 [facility] Sodium 141 mmol/L N 135-145 [phone] Potassium 3.6 mmol/L N 3.5-5.0 Chloride 109 mmol/L N 101-111 Co2 Carbon Dioxide 23 mmol/L N 22-32 Anion Gap 9 mmol/L N 2-11 Glucose 117 mg/dL High 70-100 Blood Urea Nitrogen 14 mg/dL N 6-24 Creatinine 0.81 mg/dL N 0.67-1.17 BUN/Creatinine Ratio 17.3 N 8-20 Calcium 9.3 mg/dL N 8.6-10.3 Total Protein 6.5 g/dL N 6.4-8.9 Albumin 4.3 g/dL N 3.2-5.2 Globulin 2.2 g/dL N 2-4 Albumin/Globulin Ratio 2.0 N 1-3 Total Bilirubin 0.20 mg/dL N 0.2-1.0 Alkaline Phosphatase 61 U/L N 34-104 Alt 36 U/L N 7-52 Ast 26 U/L N 13-39 Egfr Non- 110.4 >60 Egfr 133.6 >60 7 Urine Drug 09/22/2018 [facility] Amphetamine Ur None Detected None Detect SCR ED & [phone] Screen Pain Clinic Barbiturates Urine Screen None Detected None Detect Benzodiazepine Urine Screen Presumptive Posi <SEE NOTE> Abnormal None Detect 8 Urine Cannabinoids Screen Presumptive Posi <SEE NOTE> Abnormal None Detect 9 Urine Cocaine Screen None Detected None Detect Urine Opiates Screen None Detected None Detect Urine Phencyclidine Screen None Detected None Detect 10 Inr/Protime 09/22/2018 [facility] Inr 0.87 N 0.77- 1.02 [phone] CBC Auto Diff 09/22/2018 [facility] White Blood 8.3 10^3/uL N 3.5-10.8 [phone] Count Red Blood Count 4.30 10^6/uL N 4.00-5.40 Hemoglobin 14.2 g/dL N 14.0-18.0 Hematocrit 42 % N 42-52 Mean Corpuscular Volume 98 fL High 80-94 Mean Corpuscular Hemoglobin 33 pg High 27-31 Mean Corpuscular HGB Conc 34 g/dL N 31-36 Red Cell Distribution Width 13 % N 10.5-15 Platelet Count 205 10^3/uL N 150-450 Mean Platelet Volume 7.8 fL N 7.4-10.4 Abs Neutrophils 4.1 10^3/uL N 1.5-7.7 Abs Lymphocytes 3.3 10^3/uL N 1.0-4.8 Abs Monocytes 0.7 10^3/uL N 0-0.8 Abs Eosinophils 0.1 10^3/uL N 0-0.6 Abs Basophils 0 10^3/uL N 0-0.2 Abs Nucleated RBC 0 10^3/uL Granulocyte % 49.6 % N 38-83 Lymphocyte % 40.1 % N 25-47 Monocyte % 8.3 % High 0-7 Eosinophil % 1.5 % N 0-6 Basophil % 0.5 % N 0-2 Nucleated Red Blood Cells % 0.2 Laboratory test 09/22/2018 [facility] Partial 31.9 seconds N 26.0-36.3 finding [phone] Thrombo Time PTT Laboratory test 09/19/2018 [facility] Magnesium 2.3 mg/dL N 1.9-2.7 finding [phone] Troponin-I (TnI) 0.03 ng/mL <0.04 TSH (Thyroid Stimulating Horm) 1.42 mcIU/mL N 0.34-5.60 Comp Metabolic Panel 09/19/2018 [facility] Sodium 141 mmol/L N 135-145 [phone] Potassium 3.9 mmol/L N 3.5-5.0 Chloride 110 mmol/L N 101-111 Co2 Carbon Dioxide 23 mmol/L N 22-32 Anion Gap 8 mmol/L N 2-11 Glucose 101 mg/dL High 70-100 Blood Urea Nitrogen 18 mg/dL N 6-24 Creatinine 0.84 mg/dL N 0.67-1.17 BUN/Creatinine Ratio 21.4 High 8-20 Calcium 9.6 mg/dL N 8.6-10.3 Total Protein 6.3 g/dL Low 6.4-8.9 Albumin 4.4 g/dL N 3.2-5.2 Globulin 1.9 g/dL Low 2-4 Albumin/Globulin Ratio 2.3 N 1-3 Total Bilirubin 0.30 mg/dL N 0.2-1.0 Alkaline Phosphatase 66 U/L N 34-104 Alt 48 U/L N 7-52 Ast 54 U/L High 13-39 Egfr Non- 105.9 >60 Egfr 128.1 >60 11 Laboratory test 09/19/2018 [facility] Partial 30.9 seconds N 26.0-36.3 finding [phone] Thrombo Time PTT Lactic Acid 0.6 mmol/L N 0.5-2.0 12 B-Type Natriuretic Peptide BNP 80 pg/mL <=100 Inr/Protime 09/19/2018 [facility] Inr 0.83 N 0.77- 1.02 [phone] CBC Auto Diff 09/19/2018 [facility] White Blood 9.9 10^3/uL N 3.5-10.8 [phone] Count Red Blood Count 4.44 10^6/uL N 4.00-5.40 Hemoglobin 14.7 g/dL N 14.0-18.0 Hematocrit 43 % N 42-52 Mean Corpuscular Volume 98 fL High 80-94 Mean Corpuscular Hemoglobin 33 pg High 27-31 Mean Corpuscular HGB Conc 34 g/dL N 31-36 Red Cell Distribution Width 13 % N 10.5-15 Platelet Count 191 10^3/uL N 150-450 Mean Platelet Volume 8.1 fL N 7.4-10.4 Abs Neutrophils 5.7 10^3/uL N 1.5-7.7 Abs Lymphocytes 3.2 10^3/uL N 1.0-4.8 Abs Monocytes 0.8 10^3/uL N 0-0.8 Abs Eosinophils 0.1 10^3/uL N 0-0.6 Abs Basophils 0 10^3/uL N 0-0.2 Abs Nucleated RBC 0 10^3/uL Granulocyte % 57.8 % N 38-83 Lymphocyte % 31.9 % N 25-47 Monocyte % 8.6 % High 0-7 Eosinophil % 1.4 % N 0-6 Basophil % 0.3 % N 0-2 Nucleated Red Blood Cells % 0.1 CBC Auto Diff 08/29/2018 [facility] White Blood 9.1 10^3/uL N 3.5-10.8 [phone] Count Red Blood Count 4.58 10^6/uL N 4.00-5.40 Hemoglobin 15.3 g/dL N 14.0-18.0 Hematocrit 45 % N 42-52 Mean Corpuscular Volume 98 fL High 80-94 Mean Corpuscular Hemoglobin 34 pg High 27-31 Mean Corpuscular HGB Conc 34 g/dL N 31-36 Red Cell Distribution Width 13 % N 10.5-15 Platelet Count 195 10^3/uL N 150-450 Mean Platelet Volume 7.9 um3 N 7.4-10.4 Abs Neutrophils 6.2 10^3/uL N 1.5-7.7 Abs Lymphocytes 2.1 10^3/uL N 1.0-4.8 Abs Monocytes 0.7 10^3/uL N 0-0.8 Abs Eosinophils 0.1 10^3/uL N 0-0.6 Abs Basophils 0 10^3/uL N 0-0.2 Abs Nucleated RBC 0 10^3/uL Granulocyte % 68.3 % N 38-83 Lymphocyte % 22.7 % Low 25-47 Monocyte % 8.1 % High 0-7 Eosinophil % 0.5 % N 0-6 Basophil % 0.4 % N 0-2 Nucleated Red Blood Cells % 0 Inr/Protime 08/29/2018 [facility] Inr 0.89 N 0.77- 1.02 [phone] Laboratory test 08/29/2018 [facility] Lactic Acid 0.7 mmol/L N 0.5-2.0 13 finding [phone] Comp Metabolic 08/29/2018 [facility] Sodium 137 mmol/ L N 135-145 Panel [phone] Potassium 3.9 mmol/L N 3.5-5.0 Chloride 106 mmol/L N 101-111 Co2 Carbon Dioxide 23 mmol/L N 22-32 Anion Gap 8 mmol/L N 2-11 Glucose 102 mg/dL High 70-100 Blood Urea Nitrogen 14 mg/dL N 6-24 Creatinine 0.82 mg/dL N 0.67-1.17 BUN/Creatinine Ratio 17.1 N 8-20 Calcium 9.8 mg/dL N 8.6-10.3 Total Protein 6.6 g/dL N 6.4-8.9 Albumin 4.6 g/dL N 3.2-5.2 Globulin 2.0 g/dL N 2-4 Albumin/Globulin Ratio 2.3 N 1-3 Total Bilirubin 0.50 mg/dL N 0.2-1.0 Alkaline Phosphatase 73 U/L N 34-104 Alt 37 U/L N 7-52 Ast 26 U/L N 13-39 Egfr Non- 108.9 >60 Egfr 131.7 >60 14 Laboratory test 08/29/2018 [facility] Magnesium 1.9 mg/dL N 1.9-2.7 finding [phone] Troponin-I (TnI) 0.05 ng/mL High <0.04 15 TSH (Thyroid Stimulating Horm) 1.73 mcIU/mL N 0.34-5.60 CBC Auto Diff 05/05/2017 [facility] White Blood 8.0 10^3/uL N 3.5-10.8 [phone] Count Red Blood Count 4.56 10^6/uL N 4.0-5.4 Hemoglobin 15.1 g/dL N 14.0-18.0 Hematocrit 45 % N 42-52 Mean Corpuscular Volume 98 fL High 80-94 Mean Corpuscular Hemoglobin 33 pg High 27-31 Mean Corpuscular HGB Conc 34 g/dL N 31-36 Red Cell Distribution Width 13 % N 10.5-15 Platelet Count 210 10^3/uL N 150-450 Mean Platelet Volume 9 um3 N 7.4-10.4 Abs Neutrophils 4.8 10^3/uL N 1.5-7.7 Abs Lymphocytes 2.4 10^3/uL N 1.0-4.8 Abs Monocytes 0.6 10^3/uL N 0-0.8 Abs Eosinophils 0.1 10^3/uL N 0-0.6 Abs Basophils 0.1 10^3/uL N 0-0.2 Abs Nucleated RBC 0.01 10^3/uL N Granulocyte % 59.9 % N 38-83 Lymphocyte % 30.4 % N 25-47 Monocyte % 7.9 % N 1-9 Eosinophil % 0.7 % N 0-6 Basophil % 1.1 % N 0-2 Nucleated Red Blood Cells % 0.1 N Laboratory test 05/05/2017 [facility] Lactic Acid 1.4 mmol/L N 0.5-2.0 16 finding [phone] Inr/Protime 05/05/2017 [facility] Inr 0.84 Low 0.89 -1.11 [phone] Comp Metabolic 05/05/2017 [facility] Co2 Carbon 20 mmol/L Low 22-32 Panel [phone] Dioxide Glucose 104 mg/dL High 70-100 Blood Urea Nitrogen 10 mg/dL N 6-24 Creatinine 0.88 mg/dL N 0.67-1.17 BUN/Creatinine Ratio 11.4 N 8-20 Calcium 9.5 mg/dL N 8.6-10.3 Total Protein 7.4 g/dL N 6.4-8.9 Albumin 4.8 g/dL N 3.2-5.2 Globulin 2.6 g/dL N 2-4 Albumin/Globulin Ratio 1.8 N 1-3 Total Bilirubin 0.30 mg/dL N 0.2-1.0 Alkaline Phosphatase 77 U/L N 34-104 Alt 23 U/L N 7-52 Ast 23 U/L N 13-39 Egfr Non- 101.0 N >60 Egfr 129.9 N >60 17 Sodium 139 mmol/L N 133-145 Potassium 4.1 mmol/L N 3.5-5.0 Chloride 109 mmol/L N 101-111 Anion Gap 10 mmol/L N 2-11 Laboratory test 05/05/2017 [facility] Magnesium 2.1 mg/dL N 1.9-2.7 finding [phone] Troponin-I (TnI) 0.00 ng/mL N <0.04 TSH (Thyroid Stimulating Horm) 1.04 mcIU/mL N 0.34-5.60 1 Troponin-I testing on Plasma Separator Tubes (PST) has a known false positive rate of 0.20-0.40%. All positive troponins reflex immediate secondary confirmatory testing. 2 Troponin-I testing on Plasma Separator Tubes (PST) has a known false positive rate of 0.20-0.40%. All positive troponins reflex immediate secondary confirmatory testing. 3 Presumptive Positive Presumptive positive results are unconfirmed. 4 The urine specimen was tested at the listed cutoffs: Drug class test level (ng/mL) Amphetamines 500 Barbiturates 200 Benzodiazepine metabolites 200 Cocaine metabolites 150 Cannabinoids 50 Opiates 300 Pcp 25 Specimen was received without chain of custody. Results should be used for medical purposes only. 5 Because ethnic data is not always readily available, this report includes an eGFR for both -Americans and non- Americans. The National Kidney Disease Education Program (NKDEP) does not endorse the use of the MDRD equation for patients that are not between the ages of 18 and 70, are , have extremes of body size, muscle mass, or nutritional status, or are non- or non-. According to the National Kidney Foundation, irrespective of diagnosis, the stage of the disease is based on the level of kidney function: Stage Description GFR(mL/min/1.73 m(2)) 1 Kidney damage with normal or decreased GFR 90 2 Kidney damage with mild decrease in GFR 60-89 3 Moderate decrease in GFR 30-59 4 Severe decrease in GFR 15-29 5 Kidney failure <15 (or dialysis) 6 [facility] Severe Sepsis and Septic Shock Management Bundle Measure requires all lactic acids initially measuring >2.0 mmol/L be repeated. 7 Because ethnic data is not always readily available, this report includes an eGFR for both -Americans and non- Americans. The National Kidney Disease Education Program (NKDEP) does not endorse the use of the MDRD equation for patients that are not between the ages of 18 and 70, are , have extremes of body size, muscle mass, or nutritional status, or are non- or non-. According to the National Kidney Foundation, irrespective of diagnosis, the stage of the disease is based on the level of kidney function: Stage Description GFR(mL/min/1.73 m(2)) 1 Kidney damage with normal or decreased GFR 90 2 Kidney damage with mild decrease in GFR 60-89 3 Moderate decrease in GFR 30-59 4 Severe decrease in GFR 15-29 5 Kidney failure <15 (or dialysis) 8 Presumptive Positive Presumptive positive results are unconfirmed. 9 Presumptive Positive Presumptive positive results are unconfirmed. 10 The urine specimen was tested at the listed cutoffs: Drug class test level (ng/mL) Amphetamines 500 Barbiturates 200 Benzodiazepine metabolites 200 Cocaine metabolites 150 Cannabinoids 50 Opiates 300 Pcp 25 Specimen was received without chain of custody. Results should be used for medical purposes only. 11 Because ethnic data is not always readily available, this report includes an eGFR for both -Americans and non- Americans. The National Kidney Disease Education Program (NKDEP) does not endorse the use of the MDRD equation for patients that are not between the ages of 18 and 70, are , have extremes of body size, muscle mass, or nutritional status, or are non- or non-. According to the National Kidney Foundation, irrespective of diagnosis, the stage of the disease is based on the level of kidney function: Stage Description GFR(mL/min/1.73 m(2)) 1 Kidney damage with normal or decreased GFR 90 2 Kidney damage with mild decrease in GFR 60-89 3 Moderate decrease in GFR 30-59 4 Severe decrease in GFR 15-29 5 Kidney failure <15 (or dialysis) 12 [facility] Severe Sepsis and Septic Shock Management Bundle Measure requires all lactic acids initially measuring >2.0 mmol/L be repeated. 13 [facility] Severe Sepsis and Septic Shock Management Bundle Measure requires all lactic acids initially measuring >2.0 mmol/L be repeated. 14 Because ethnic data is not always readily available, this report includes an eGFR for both -Americans and non- Americans. The National Kidney Disease Education Program (NKDEP) does not endorse the use of the MDRD equation for patients that are not between the ages of 18 and 70, are , have extremes of body size, muscle mass, or nutritional status, or are non- or non-. According to the National Kidney Foundation, irrespective of diagnosis, the stage of the disease is based on the level of kidney function: Stage Description GFR(mL/min/1.73 m(2)) 1 Kidney damage with normal or decreased GFR 90 2 Kidney damage with mild decrease in GFR 60-89 3 Moderate decrease in GFR 30-59 4 Severe decrease in GFR 15-29 5 Kidney failure <15 (or dialysis) 15 Result TnIDx:0.05 Called to [id number] at: 17:35:41 by:[id number] Read back by: [id number] 16 [facility] Severe Sepsis and Septic Shock Management Bundle Measure requires all lactic acids initially measuring >2.0 mmol/L be repeated. 17 Because ethnic data is not always readily available, this report includes an eGFR for both -Americans and non- Americans. The National Kidney Disease Education Program (NKDEP) does not endorse the use of the MDRD equation for patients that are not between the ages of 18 and 70, are , have extremes of body size, muscle mass, or nutritional status, or are non- or non-. According to the National Kidney Foundation, irrespective of diagnosis, the stage of the disease is based on the level of kidney function: Stage Description GFR(mL/min/1.73 m(2)) 1 Kidney damage with normal or decreased GFR 90 2 Kidney damage with mild decrease in GFR 60-89 3 Moderate decrease in GFR 30-59 4 Severe decrease in GFR 15-29 5 Kidney failure <15 (or dialysis) Procedures Date Code Description Status 02/21/2017 64168 EKG, at Least 12 Leads w/Interpretation and Report Completed Encounters Type Date Location Provider Dx Diagnosis Office Visit 01/31/2018 Main Office Conrad Patton J06.9 Acute upper 9:45a III, [facility] respiratory infection, unspecified Office Visit 05/09/2017 Main Office Juan Pablo Sosa I48.91 Unspecified atrial 3:30p fibrillation Office Visit 02/21/2017 Main Office Juan Pablo Sosa I48.91 Unspecified atrial 10:15a fibrillation Plan of Treatment 03/05/2019 - Juan Pablo Sosa MDI45.6 Pre-excitation syndromeNew Orders:Card- Holter Monitor, Scheduled: 03/06/19Comments:His symptoms certainly could correlate with a panic attack. 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
[2019-03-11] MEDS ORDERED: Ondansetron ODT TAB* 4 MG SL ONE (06:51)
[2019-03-11 06:56] LABS: ABS Basophils 0.1 10^3/ul (0-0.2); ABS Eosinophils 0.1 10^3/ul (0-0.6); ABS Lymphocytes 3.1 10^3/ul (1.0-4.8); ABS Monocytes 0.8 10^3/ul (0-0.8); ABS Neutrophils 3.7 10^3/ul (1.5-7.7); ABS Nucleated RBC 0 10^3/ul; Eosinophil % 1.8 %; Hematocrit 42 % (36-46); Hemoglobin 14.2 g/dL (14.0-18.0); Lymphocyte % 40.1 %; Mean Corpuscular HGB Conc 34 g/dL (31-36); Mean Corpuscular Hemoglobin 33 pg (27-31); Mean Corpuscular Volume 97 fL (80-94); Mean Platelet Volume 8.2 fL (7.4-10.4); Nucleated Red Blood Cells % 0.1; Platelet Count 214 10^3/uL (150-450); Red Cell Distribution Width 13 % (10.5-15); White Blood Count 7.8 10^3/uL (3.5-10.8)
[2019-03-11 07:15] LABS: Albumin 4.5 g/dL (3.2-5.2); Albumin/Globulin Ratio 2.1 (1-3); BUN/Creatinine Ratio 18.1 (8-20); Calcium 9.6 mg/dL (8.6-10.3); EGFR African American 129.1 (>60); EGFR Non-African American 106.7 (>60); Globulin 2.1 g/dL (2-4); Potassium 3.9 mmol/L (3.5-5.0); Total Bilirubin 0.6 mg/dL (0.2-1.0); Total Protein 6.6 g/dL (6.4-8.9)
[2019-03-11 07:21] LABS: CKMB ng/mL 2.7 ng/mL (0.6-6.3)
--- NOTE | 2019-03-11 07:33 | ED ---
HPI Chest Pain - HPI Summary HPI Summary: Patient is a 33-year-old male presenting to the ED with midsternal chest "tightness" and fatigue. He states he worked a 13 hour shift yesterday and after his shift at approximately 11 PM he began to have chest tightness to the midsternal region and fatigue. At this time he does attribute this to his long working hours, however due to his extensive cardiac history, he became more concerned over his symptoms. He does have a history of palpitations, prior ablation treatment, Kaplan Parkinson White syndrome and was recently seen in the ED 9 days ago for same symptoms. He was found at that time to have negative lab work, chest x-ray and EKG and was subsequent Cara home with follow-up to cardiology and PCP. He denies any medications at this time. He does state he no longer has symptoms of heart racing or feelings of atrial fibrillation as he did prior to his ablation. [facility] [employer] Assist[employer] Teacher is Dr. Up. Symptoms are not worse or better with exertion or rest. Patient denies recent illness, and denies any fevers, sweats, chills and is nondiaphoretic. Symptoms are constant. He does state he had a Holter monitor on last week, but does not know the results of this. - History of Current Complaint Chief Complaint: EDChestPainROMI Time Seen by Provider: 03/11/19 06:32 Hx Obtained From: Patient Onset/Duration: Started Hours Ago Timing: Constant Initial Severity: Moderate Current Severity: Moderate Pain Intensity: 1 Pain Scale Used: 0-10 Numeric Chest Pain Location: Mid Sternal Chest Pain Radiates: No Character: Dull/Aching Aggravating Factor(s): Nothing Alleviating Factor(s): Nothing Associated Signs and Symptoms: Positive: Negative - Risk Factors Pulmonary Embolism Risk Factors: Negative TAD Risk Factors: Negative - Additional Pertinent History Primary Care Physician: [id number] - Allergy/Home Medications Allergies/Adverse Reactions: Allergies Allergy/AdvReac Type Severity Reaction Status Date / Time No Known Allergies Allergy Verified 03/11/19 06:21 Home Medications: Home Medications NK [No Home Medications Reported] 03/11/19 [History Confirmed 03/11/19] PMH/Surg Hx/FS Hx/Imm Hx Previously Healthy: Yes Endocrine/Hematology History: Denies: Hx Diabetes Cardiovascular History: Reports: Hx Angina, Hx Atrial Fibrillation, Other Cardiovascular Problems/Disorders - WPW Denies: Hx Congestive Heart Failure, Hx Coronary Artery Disease, Hx Hypercholesterolemia, Hx Hypertension, Hx Myocardial Infarction, Hx Valvular Heart Disease Respiratory History: Denies: Hx Asthma, Hx Chronic Obstructive Pulmonary Disease (COPD) Sensory History: Denies: Hx Contacts or Glasses, Hx Hearing Aid Opthamlomology History: Denies: Hx Contacts or Glasses - Cancer History Cancer Type, Location and Year: None reported - Surgical History Surgery Procedure, Year, and Place: Appendectomy. ablation 2017 - Immunization History Hx Pertussis Vaccination: No Immunizations Up to Date: Yes Infectious Disease History: Yes Infectious Disease History: Reports: Hx Shingles Denies: Traveled Outside the [place] in Last 30 Days - Family History Known Family History: Positive: Hypertension - mother, brother, Diabetes, Other - no FMHx of WPW Negative: Blood Disorder - no FMHx of blood clots - Social History Occupation: Employed Full-time Lives: With Family Alcohol Use: every other day Alcohol Amount: 12 per week Hx Substance Use: Yes Substance Use Type: Reports: Marijuana Substance Use Comment - Amount & Last Used: recreationally Hx Tobacco Use: Yes Smoking Status (MU): Light Every Day Tobacco Smoker Type: Cigarettes Review of Systems Constitutional: Negative Negative: Fever, Chills, Fatigue, Skin Diaphoresis Positive: Chest Pain - midsternal. Negative: Palpitations Negative: Shortness Of Breath, Cough Positive: Abdominal Pain. Negative: Vomiting, Diarrhea, Nausea Genitourinary: Negative Positive: no symptoms reported, see HPI Negative: Arthralgia, Myalgia Skin: Negative All Other Systems Reviewed And Are Negative: Yes Physical Exam Triage Information Reviewed: Yes Vital Signs On Initial Exam: Initial Vitals Temp Pulse Resp BP Pulse Ox 98.4 F 70 16 146/93 98 03/11/19 06:19 03/11/19 06:19 03/11/19 06:19 03/11/19 06:19 03/11/19 06:19 Vital Signs Reviewed: Yes Appearance: Positive: Well-Appearing, Well-Nourished Skin: Positive: Warm, Skin Color Reflects Adequate Perfusion Head/Face: Positive: Normal Head/Face Inspection Eyes: Positive: EOMI, Conjunctiva Clear Neck: Positive: Supple, No Lymphadenopathy Respiratory/Lung Sounds: Positive: Clear to Auscultation, Breath Sounds Present Cardiovascular: Positive: RRR, Pulses are Symmetrical in both Upper and Lower Extremities. Negative: Bradycardia, IRR, Murmur, Rub, Tachycardia, Leg Edema Left, Leg Edema Right Musculoskeletal: Positive: Normal, Strength/ROM Intact Neurological: Positive: Speech Normal Psychiatric: Positive: Normal, Affect/Mood Appropriate AVPU Assessment: Alert Diagnostics - Vital Signs Vital Signs Temp Pulse Resp BP Pulse Ox 03/11/19 07:00 58 17 97 03/11/19 06:58 97 03/11/19 06:35 73 21 169/90 98 03/11/19 06:34 64 98 03/11/19 06:19 98.4 F 70 16 146/93 98 - Laboratory Lab Results: Lab Results 03/11/19 03/11/19 03/11/19 Range/Units 06:46 06:46 06:46 WBC 7.8 (3.5-10.8) 10^3/uL RBC 4.30 (4.18-5.48) 10^6 /uL Hgb 14.2 (14.0-18.0) g/dL Hct 42 (36-46) % MCV 97 H (80-94) fL MCH 33 H (27-31) pg MCHC 34 (31-36) g/dL RDW 13 (10.5-15) % Plt Count 214 (150-450) 10^3/uL MPV 8.2 (7.4-10.4) fL Neut % (Auto) 47.2 % Lymph % (Auto) 40.1 % Becker % (Auto) 10.3 % Eos % (Auto) 1.8 % Baso % (Auto) 0.6 % Absolute Neuts (auto) 3.7 (1.5-7.7) 10^3/ul Absolute Lymphs (auto) 3.1 (1.0-4.8) 10^3/ul Absolute Monos (auto) 0.8 (0-0.8) 10^3/ul Absolute Eos (auto) 0.1 (0-0.6) 10^3/ul Absolute Basos (auto) 0.1 (0-0.2) 10^3/ul Absolute Nucleated RBC 0 10^3/ul Nucleated RBC % 0.1 INR (Anticoag Therapy) 1.00 (0.82-1.09) Sodium 137 (135-145) mmol/L Potassium 3.9 (3.5-5.0) mmol/L Chloride 108 (101-111) mmol/L Carbon Dioxide 22 (22-32) mmol/L Anion Gap 7 (2-11) mmol/L BUN 15 (6-24) mg/dL Creatinine 0.83 (0.67-1.17) mg/dL Est GFR ( Amer) 129.1 (>60) Est GFR (Non-Af Amer) 106.7 (>60) BUN/Creatinine Ratio 18.1 (8-20) Glucose 108 H (70-100) mg/dL Lactic Acid (0.5-2.0) mmol/L Calcium 9.6 (8.6-10.3) mg/dL Magnesium 2.0 (1.9-2.7) mg/dL Total Bilirubin 0.60 (0.2-1.0) mg/dL AST 19 (13-39) U/L ALT 26 (7-52) U/L Alkaline Phosphatase 76 (34-104) U/L CK-MB (CK-2) 2.7 (0.6-6.3) ng/mL Troponin I 0.00 (<0.04) ng/mL B-Natriuretic Peptide (<=100) pg/mL Total Protein 6.6 (6.4-8.9) g/dL Albumin 4.5 (3.2-5.2) g/dL Globulin 2.1 (2-4) g/dL Albumin/Globulin Ratio 2.1 (1-3) 03/11/19 03/11/19 Range/Units 06:46 06:46 WBC (3.5-10.8) 10^3/uL RBC (4.18-5.48) 10^6 /uL Hgb (14.0-18.0) g/dL Hct (36-46) % MCV (80-94) fL MCH (27-31) pg MCHC (31-36) g/dL RDW (10.5-15) % Plt Count (150-450) 10^3/uL MPV (7.4-10.4) fL Neut % (Auto) % Lymph % (Auto) % Becker % (Auto) % Eos % (Auto) % Baso % (Auto) % Absolute Neuts (auto) (1.5-7.7) 10^3/ul Absolute Lymphs (auto) (1.0-4.8) 10^3/ul Absolute Monos (auto) (0-0.8) 10^3/ul Absolute Eos (auto) (0-0.6) 10^3/ul Absolute Basos (auto) (0-0.2) 10^3/ul Absolute Nucleated RBC 10^3/ul Nucleated RBC % INR (Anticoag Therapy) (0.82-1.09) Sodium (135-145) mmol/L Potassium (3.5-5.0) mmol/L Chloride (101-111) mmol/L Carbon Dioxide (22-32) mmol/L Anion Gap (2-11) mmol/L BUN (6-24) mg/dL Creatinine (0.67-1.17) mg/dL Est GFR ( Amer) (>60) Est GFR (Non-Af Amer) (>60) BUN/Creatinine Ratio (8-20) Glucose (70-100) mg/dL Lactic Acid 0.6 (0.5-2.0) mmol/L Calcium (8.6-10.3) mg/dL Magnesium (1.9-2.7) mg/dL Total Bilirubin (0.2-1.0) mg/dL AST (13-39) U/L ALT (7-52) U/L Alkaline Phosphatase (34-104) U/L CK-MB (CK-2) (0.6-6.3) ng/mL Troponin I (<0.04) ng/mL B-Natriuretic Peptide 17 (<=100) pg/mL Total Protein (6.4-8.9) g/dL Albumin (3.2-5.2) g/dL Globulin (2-4) g/dL Albumin/Globulin Ratio (1-3) Result Diagrams: 03/11/19 06:46 03/11/19 06:46 Lab Statement: Any lab studies that have been ordered have been reviewed, and results considered in the medical decision making process. Chest Pain Course/Dx - Course Course Of Treatment: During his course of treatment from the patient's evaluated for feelings of chest tightness to the midsternal region which is nonradiating as well as fatigue. He does endorse working at 13 hour shift yesterday. On arrival to the ED, an EKG was promptly obtained. EKG shows no changes from last week with a previous EKG. This was read by ED physician, Dr. Russell on a. Chest x-ray shows no acute findings. Labs obtained which are all WNL including a troponin 0.00. Patient continues to have midsternal chest tightness which is rated 1/10. He appears well, nondiaphoretic and nontoxic in appearing. Holter monitor reviewed on this visit and is normal sinus rhythm with 43 bpm minimum to 142 bpm maximum. Rare ectopy of 2 PACs. Discussed findings with patient. He feels comfortable at this time to be discharged home. He will follow up with Dr. Up and Dr. Sosa. - Chest Pain Differential Diagnosis/HQI/PQRI: ACS, Angina, Chest Wall - Diagnoses Provider Diagnoses: Atypical chest pain Discharge - Sign-Out/Discharge Documenting (check all that apply): Patient Departure Patient Received Moderate/Deep Sedation with Procedure: No - Discharge Plan Condition: Stable Disposition: HOME Patient Education Materials: Chest Pain (ED) Referrals: Juan Pablo Sosa MD [Primary Care Provider] - Additional Instructions: Atypical chest pain. Please follow up with Dr. Sosa and Dr. Up - Billing Disposition and Condition Condition: STABLE Disposition: Home
[2019-03-11 08:36] VITALS: BP 139/82
== END 2019-03-11 08:34 | disposition home or self-care (01) ==
LOC: ED 06:14
DX: R07.89 Other chest pain (principal); I48.91 Unspecified atrial fibrillation; I45.6 Pre-excitation syndrome; F17.210 Nicotine dependence, cigarettes, uncomplicated
CPT/HCPCS: 36415; 71045; 80053; 82553; 83605; 83735; 83880; 84484; 85025; 85610; 93005; 99282; A9270-GY

== ENCOUNTER 2019-04-15 09:14 | Emergency (ER) | payer SELFPAY ==
[2019-04-15 09:58] LABS: ABS Eosinophils 0.1 10^3/ul (0-0.6); ABS Lymphocytes 1.9 10^3/ul (1.0-4.8); ABS Monocytes 0.6 10^3/ul (0-0.8); ABS Neutrophils 2.2 10^3/ul (1.5-7.7); Hematocrit 42 % (42-52); Lymphocyte % 39.3 %; Mean Corpuscular HGB Conc 33 g/dL (31-36); Mean Corpuscular Hemoglobin 33 pg (27-31); Mean Corpuscular Volume 100 fL (80-94); Nucleated Red Blood Cells % 0.1; Platelet Count 197 10^3/uL (150-450); Red Blood Count 4.18 10^6 /uL (4.18-5.48); Red Cell Distribution Width 13 % (10.5-15); White Blood Count 4.8 10^3/uL (3.5-10.8)
[2019-04-15 10:03] LABS: INR 0.86 (0.82-1.09)
[2019-04-15 10:27] LABS: Albumin 4.3 g/dL (3.2-5.2); BUN/Creatinine Ratio 23.8 (8-20); Calcium 9.2 mg/dL (8.6-10.3); EGFR African American 134.7 (>60); EGFR Non-African American 111.3 (>60); Globulin 2.1 g/dL (2-4); Magnesium 1.9 mg/dL (1.9-2.7); Total Bilirubin 0.2 mg/dL (0.2-1.0); Total Protein 6.4 g/dL (6.4-8.9)
--- NOTE | 2019-04-15 10:35 | ED ---
HPI Chest Pain - HPI Summary HPI Summary: Patient is a 33-year-old male with a history of chest pain, review W with a double ablation in October 2018, palpitations presenting to the ED with acute onset of feeling heart racing at 110-120 bpm which was acute onset this morning. He denies this currently. He does endorse eating steak drinking wine last evening. Denies any symptoms immediately following his dinner, but instead reports these symptoms this morning. He denies any CP, SOB, nausea, vomiting, calf pain. He has had symptoms of rapid palpitations with midsternal chest pain in the past, but denies any chest pain with these symptoms of rapid heart rate. He was seen in the ED for same twice in February and was encouraged to follow up with his oracle hrms developer, Dr. Up. He denies any follow-ups. He states he is lacking in sleep right now and also has a history of anxiety. - History of Current Complaint Chief Complaint: EDDysrhythmPalp Time Seen by Provider: 04/15/19 09:19 Hx Obtained From: Patient Onset/Duration: Started Hours Ago Timing: Constant, Lasting Minutes - 30 minutes Initial Severity: Moderate Current Severity: None Pain Intensity: 0 Pain Scale Used: 0-10 Numeric Chest Pain Radiates: No Aggravating Factor(s): Nothing Alleviating Factor(s): Nothing Associated Signs and Symptoms: Negative: Chest Pain, Vision Changes, Anxiety, Recent Stress, Headaches, Numbness, Tingling, Weakness - Risk Factors Pulmonary Embolism Risk Factors: Negative TAD Risk Factors: Negative - Additional Pertinent History Primary Care Physician: [id number] - Allergy/Home Medications Allergies/Adverse Reactions: Allergies Allergy/AdvReac Type Severity Reaction Status Date / Time No Known Allergies Allergy Verified 03/11/19 06:21 PMH/Surg Hx/FS Hx/Imm Hx Previously Healthy: Yes Endocrine/Hematology History: Denies: Hx Diabetes Cardiovascular History: Reports: Hx Angina, Hx Atrial Fibrillation, Other Cardiovascular Problems/Disorders - WPW Denies: Hx Congestive Heart Failure, Hx Coronary Artery Disease, Hx Hypercholesterolemia, Hx Hypertension, Hx Myocardial Infarction, Hx Valvular Heart Disease Respiratory History: Denies: Hx Asthma, Hx Chronic Obstructive Pulmonary Disease (COPD) Sensory History: Denies: Hx Contacts or Glasses, Hx Hearing Aid Opthamlomology History: Denies: Hx Contacts or Glasses - Cancer History Cancer Type, Location and Year: None reported - Surgical History Surgery Procedure, Year, and Place: Appendectomy. ablation 2018 - Immunization History Hx Pertussis Vaccination: No Immunizations Up to Date: Yes Infectious Disease History: No Infectious Disease History: Reports: Hx Shingles Denies: Traveled Outside the [place] in Last 30 Days - Family History Known Family History: Positive: Hypertension - mother, brother, Diabetes, Other - no FMHx of WPW Negative: Blood Disorder - no FMHx of blood clots - Social History Occupation: Employed Full-time Lives: With Family Alcohol Use: every other day Alcohol Amount: 12 per week Hx Substance Use: Yes Substance Use Type: Reports: None Substance Use Comment - Amount & Last Used: recreationally Hx Tobacco Use: Yes Smoking Status (MU): Light Every Day Tobacco Smoker Type: Cigarettes Review of Systems Constitutional: Negative Negative: Fever, Chills, Fatigue, Skin Diaphoresis Positive: Palpitations - heart racing. Negative: Chest Pain Negative: Shortness Of Breath, Cough Genitourinary: Negative Positive: no symptoms reported, see HPI Negative: Arthralgia, Myalgia Neurological: Negative All Other Systems Reviewed And Are Negative: Yes Physical Exam Triage Information Reviewed: Yes Vital Signs On Initial Exam: Initial Vitals Temp Pulse Resp BP Pulse Ox 97.8 F 76 16 133/90 97 04/15/19 09:16 04/15/19 09:16 04/15/19 09:16 04/15/19 09:16 04/15/19 09:16 Vital Signs Reviewed: Yes Appearance: Positive: Well-Appearing, Well-Nourished Skin: Positive: Warm, Skin Color Reflects Adequate Perfusion Head/Face: Positive: Normal Head/Face Inspection Eyes: Positive: EOMI, Conjunctiva Clear Neck: Positive: Supple, No Lymphadenopathy Respiratory/Lung Sounds: Positive: Clear to Auscultation, Breath Sounds Present Cardiovascular: Positive: RRR, Pulses are Symmetrical in both Upper and Lower Extremities. Negative: Tachycardia, Leg Edema Left, Leg Edema Right Musculoskeletal: Positive: Normal, Strength/ROM Intact Neurological: Positive: Alert, Oriented to Person Place, Time, Speech Normal Psychiatric: Positive: Affect/Mood Appropriate AVPU Assessment: Alert Diagnostics - Vital Signs Vital Signs Temp Pulse Resp BP Pulse Ox 04/15/19 10:16 75 16 133/73 97 04/15/19 10:00 81 18 95 04/15/19 09:46 72 140/83 97 04/15/19 09:45 69 97 04/15/19 09:16 97.8 F 76 16 133/90 97 - Laboratory Lab Results: Lab Results 04/15/19 04/15/19 Range/Units 09:47 09:47 WBC 4.8 (3.5-10.8) 10^3/uL RBC 4.18 (4.18-5.48) 10^6 /uL Hgb 14.0 (14.0-18.0) g/dL Hct 42 (42-52) % MCV 100 H (80-94) fL MCH 33 H (27-31) pg MCHC 33 (31-36) g/dL RDW 13 (10.5-15) % Plt Count 197 (150-450) 10^3/uL MPV 8.0 (7.4-10.4) fL Neut % (Auto) 46.3 % Lymph % (Auto) 39.3 % Letcher % (Auto) 11.8 % Eos % (Auto) 2.0 % Baso % (Auto) 0.6 % Absolute Neuts (auto) 2.2 (1.5-7.7) 10^3/ul Absolute Lymphs (auto) 1.9 (1.0-4.8) 10^3/ul Absolute Monos (auto) 0.6 (0-0.8) 10^3/ul Absolute Eos (auto) 0.1 (0-0.6) 10^3/ul Absolute Basos (auto) 0.0 (0-0.2) 10^3/ul Absolute Nucleated RBC 0.0 10^3/ul Nucleated RBC % 0.1 INR (Anticoag Therapy) 0.86 (0.82-1.09) Result Diagrams: 04/15/19 09:47 04/15/19 09:47 Lab Statement: Any lab studies that have been ordered have been reviewed, and results considered in the medical decision making process. Chest Pain Course/Dx - Course Course Of Treatment: During this course of treatment, the patient's evaluated for feelings of increased heart rate this morning at 100- 120 bpm which lasted for approximately 30 minutes. Denies any other sxs. Denies sxs currently. Lungs CTA, RRR, no tachycardia noted. EKG shows a normal sinus rhythm with a rate of 77. This was read by Dr. Acevedo in the ED. Chest x-ray obtained and shows no acute cardio pulmonary disease, labs obtained which is WNL. Trop 0.00. Patient denies any concerns or symptoms since arrival to the ED. He states he is okay for discharge at this time. He will be diagnosed with tachycardia and will follow up with his PCP. - Chest Pain Differential Diagnosis/HQI/PQRI: Other: - palpitations, anxiety, dehydration - Diagnoses Provider Diagnoses: Tachycardia Discharge - Sign-Out/Discharge Documenting (check all that apply): Patient Departure Patient Received Moderate/Deep Sedation with Procedure: No - Discharge Plan Condition: Stable Disposition: HOME Patient Education Materials: Tachycardia (ED) Referrals: Juan Pablo Sosa MD [Primary Care Provider] - Alexandra Up MD [Medical Doctor] - Additional Instructions: Please follow up with Dr. Up If your symptoms persist, you may need to have further evaluation through your oracle hrms developer If you develop any worsening symptoms or chest pain - return to the ED - Billing Disposition and Condition Condition: STABLE Disposition: Home
[2019-04-15 11:00] VITALS: BP 128/73
[2019-04-15 11:12] LABS: Potassium 3.9 mmol/L (3.5-5.0)
== END 2019-04-15 11:18 | disposition home or self-care (01) ==
LOC: ED 09:14
DX: R00.0 Tachycardia, unspecified (principal); F17.210 Nicotine dependence, cigarettes, uncomplicated
CPT/HCPCS: 36415; 71046; 80053; 83605; 83735; 84484; 85025; 85610; 93005; 99283